=== PATIENT | female | born 1940 | race Caucasian/White ===

== ENCOUNTER 2018-11-30 13:29 | Inpatient (IN) ==
[2018-11-30] MEDS ORDERED: IPRATROPIUM/ALBUTEROL 3 ML AMPUL.NEB NEB ONE ×3 (13:31→21:21)
[2018-11-30] MEDS ORDERED: methylPREDNISolone SOD SUCC 125 MG/2 ML VIAL IV ONE (13:31)
--- NOTE | 2018-11-30 13:51 | Emergency Department Note ---
SOB HPI - General Chief Complaint: Shortness of Breath/Dyspnea Stated Complaint: shortness of breath Time Seen by Provider: 11/30/18 13:33 Source: EMS Mode of arrival: EMS - History of Present Illness She was recently admitted on 11/17/18 exacerbation of COPD. ALSO had some CHF. She was seen again on 11/29/18 and given several treatments of DuoNeb and and Solu-Medrol. Her CK MB was elevated at the time of 6.6 however repeat troponin after 6 hours revealed no increase of the MB fraction. Her ABGs at that time showed a pH of 7.47 CO2 of 39 and O2 of 65 with saturating at 94% on 3 L of O2 is on chronic O2 at home Dr. Newby reviewed the repeat cardiac enzymes which were negative and patient was breathing well at the time. However patient states during the night, last night, she started having some wheezing again she called [facility] [facility] and when she arrived she was on CPAP and was given an albuterol treatment.Her temperature is 97.4 the pulse is 92 the respiratory rate is 30 blood pressure 172/31 pulse ox with the BiPAP is 89% . We have continue the CPAP and have put her on a DuoNeb along with Solu-Medrol. Patient is denying any chest pain her BNP previously was 1049 the d-dimer less than 0.27. Patient having severe wheezing and acute respiratory distress at this time. - Related Data Home Medications Medication Instructions Recorded Confirmed albuterol sulfate HFA 90 2 puff INHALATION Q6HP PRN g 08/16/17 11/30/18 mcg/actuation aerosol inhaler ranitidine 150 mg capsule 150 mg PO QHS 08/16/17 11/30/18 quetiapine 25 mg tablet 25 mg PO QHS tab 10/18/18 11/30/18 Prednisolone Acetate/Pf 5 ml OP QID 11/18/18 11/30/18 [Prednisolone Acet 1% Eye Drop] Warfarin [Coumadin] 5 mg PO MOTUWETHFRSA@1400 11/18/18 11/30/18 Wheelchair 1 each MC CONT 11/18/18 11/29/18 Carboxymethylcellulos/Glycerin 1 drp OU Q4 11/30/18 11/30/18 [Refresh Optive Eye Drops] Carboxymethylcellulos/Glycerin 1 drp OU HS 11/30/18 11/30/18 [Refresh Optive Gel Eye Drops] LORazepam [Ativan] 1 mg PO TID 11/30/18 11/30/18 Pramipexole [Mirapex] 0.125 mg PO HS 11/30/18 11/30/18 Sodium Chloride 5% Opth Drops 1 gtt OU Q4 11/30/18 11/30/18 [Dunia-128] amantadine HCl 100 mg capsule 100 mg PO DAILY 11/30/18 11/30/18 Previous Rx's Medication Instructions Recorded atorvastatin 10 mg tablet 10 mg PO QDAY #30 tab 09/20/18 carvedilol 3.125 mg tablet 3.125 mg PO QDAY #30 tab 09/20/18 misoprostol 200 mcg tablet 200 mcg PO QDAY #90 tab 10/07/18 bupropion HCl 75 mg tablet 75 mg PO QDAY #30 tab 10/31/18 furosemide 20 mg tablet 30 mg PO QDAY #45 tab 11/01/18 potassium chloride ER 20 mEq 20 meq PO QDAY #60 tab 11/01/18 tablet,extended release ipratropium-albuterol 0.5 mg-3 2 ml INHALATION QID PRN #360 ml 11/11/18 mg(2.5 mg base)/3 mL nebulization soln budesonide 0.5 mg/2 mL suspension 0.5 mg INHALATION BID #120 ml 11/29/18 for nebulization Allergies Allergy/AdvReac Type Severity Reaction Status Date / Time No Known Drug Allergies Allergy Verified 11/29/18 15:38 Review of Systems Constitutional: Denies: fever, chills Eyes: Denies: eye pain ENT ED: Denies: ear pain Cardiovascular: Denies: chest pain, palpitations Respiratory: Reports: shortness of breath Gastrointestinal: Denies: abdominal pain, nausea, vomiting Past Medical History - Past Medical History PMFSH Narrative: All Active Problems (Last Reviewed 11/29/18 @ 15:35 by Shane Quiles MD) Left hip pain (Acute) Laceration of forehead without complication (Acute) Acute exacerbation of chronic obstructive airways disease (Acute) Acute respiratory failure with hypoxia and hypercarbia (Acute) Carotid stenosis, bilateral (Chronic) Ischemic changes on computed tomography of head (Chronic) COPD (chronic obstructive pulmonary disease) with chronic bronchitis (Chronic) COPD exacerbation (Acute) Hypoxia (Chronic) Hypertension (Chronic) Restless leg syndrome (Chronic) Cough (Chronic) Joint stiffness (Chronic) Joint swelling (Chronic) Joint pain (Chronic) Rectal prolapse (Chronic) Anxiety (Chronic) Confusion (Chronic) Fall (Chronic) Pneumonia (Chronic) Breast cancer (Chronic) Chronic constipation (Chronic) Chronic lumbar pain (Chronic) History of mammogram (Chronic) History of Papanicolaou smear of cervix (Chronic) Chronic anxiety (Chronic) Chronic a-fib (Chronic) COPD (chronic obstructive pulmonary disease) (Chronic) Bronchitis (Chronic) Encounter for long-term (current) use of medications (Chronic) Anemia of chronic disease (Chronic) Dyspnea on exertion (Chronic) 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) Lower gastrointestinal hemorrhage (Chronic) Internal hemorrhoids (Chronic) Acute decompensated heart failure (Chronic) Nosocomial pneumonia (Chronic) Shortness of Breath (Chronic) Postoperative bleeding from incision (Chronic) Past Surgical History (Last Reviewed 11/29/18 @ 15:35 by Shane Quiles MD) H/O oophorectomy (Acute) History of carpal tunnel release (Chronic) History of cholecystectomy (Chronic) History of knee surgery (Chronic) History of mastectomy (Chronic) History of surgery (Chronic 03/26/16) History of surgery (Chronic) Family History (Last Reviewed 11/29/18 @ 15:35 by Shane Quiles MD) Father Prostate cancer Medical history: Reports: COPD, hypertension Surgical history ED: Reports: cholecystectomy, hysterectomy - Social History smoking status: Former smoker Alcohol use: Reports: None Drug use: Reports: none Physical Exam Limitations: no limitations General appearance: alert Head: atraumatic, normocephalic Eye: Present: normal appearance, PERRL ENT: normal exam, normal oropharynx Neck: Present: normal inspection, full ROM, trachea midline Chest: Present: normal inspection, symmetric chest wall rise. Absent: tenderness Respiratory: Present: normal lung sounds bilaterally. Absent: respiratory distress, rales/crackles, wheezes Cardiovascular: Present: regular rate, normal rhythm. Absent: bradycardia, tachycardia Abdominal: Present: soft. Absent: distention, tenderness, guarding, rebound Extremities: Present: normal inspection, full ROM. Absent: tenderness Back: Present: normal inspection, full ROM. Absent: tenderness Neurological: Present: alert, oriented X3, CN II-XII intact. Absent: motor sensory deficit Psychiatric: Present: normal affect, normal mood Course Vital Signs Temperature 97.4 F 11/30/18 13:29 Pulse Rate 92 H 11/30/18 13:29 Respiratory Rate 30 H 11/30/18 13:29 Blood Pressure 172/31 11/30/18 13:29 Pulse Oximetry (%) 89 L 11/30/18 13:29 Temperature 97.0 F 12/01/18 02:01 Pulse Rate 67 12/01/18 06:01 Respiratory Rate 20 12/01/18 06:01 Blood Pressure 140/93 12/01/18 06:01 Pulse Oximetry (%) 95 12/01/18 06:01 Shortness of Breath/Dyspnea - MDM Narrative Medical decision making narrative: Patient put on CPAP and responded appropriately and much improved talking freely we did try to take her off CPAP but her sats dropped immediately down to the mid 80sThe WBC is 12,100 the hemoglobin is 12.9 hematocrit 40.2 her INR is 1.7 the d-dimer 0.44 lactic acid is 1.7 sodium is 146 the potassium 4.0 CO2 is 30 and BUN is 30 creatinine 0.9 urine test shows [address] Garcia contacted patient to be admitted - Lab Data Result diagrams: 12/01/18 03:50 12/01/18 03:50 Lab Results 11/30/18 11/30/18 11/30/18 Range/Units 14:50 14:50 14:50 WBC TNP RBC TNP Hgb TNP Hct TNP MCV TNP MCH TNP MCHC TNP RDW TNP Plt Count TNP MPV TNP Gran % (38.0-78.0) % Lymph % (Auto) (15.5-49.0) % [place] % (Auto) (1.0-12.0) % Eos % (Auto) (0.0-7.0) % Baso % (Auto) (0.0-2.0) % Gran # (1.8-8.0) K/mcL Lymph # (Auto) (1.5-4.8) K/mcL [place] # (Auto) (0.1-0.9) K/mcL Eos # (Auto) (0.0-0.7) K/mcL Baso # (Auto) (0.0-0.3) K/mcL PT TNP INR TNP D-Dimer TNP VBG Lactic Acid 1.7 (0.5-2.0) mmol/L Magnesium (1.6-2.5) mg/dL Total Creatine Kinase (24-170) IU/L CK-MB (CK-2) (0-2.9) ng/ml Troponin T (0-0.03) ng/ml Procalcitonin (<0.10) ng/mL Urine Color Urine Appearance Urine pH (5.0-9.0) Ur Specific [place] (1.003-1.030) Urine Protein (NEG) mg/dL Urine Glucose (UA) (NEG) mg/dL Urine Ketones (NEG) mg/dL Urine Occult Blood (<5) alex/mcL Urine Nitrate (NEG) Urine Bilirubin (NEG) mg/dL Urine Urobilinogen (NEG) mg/dL Ur Leukocyte Esterase (NEG) /uL Urine RBC (0-1) /hpf Urine WBC (0-4) /hpf Ur Squamous Epith Cells (0-4) /hpf Ur Transition Epith Cell (0-2) /hpf Urine Bacteria (0) /hpf Urine Mucus (0) /hpf Ur Culture Indicated? 11/30/18 11/30/18 11/30/18 Range/Units 14:50 14:50 14:50 WBC RBC Hgb Hct MCV MCH MCHC RDW Plt Count MPV Gran % (38.0-78.0) % Lymph % (Auto) (15.5-49.0) % [place] % (Auto) (1.0-12.0) % Eos % (Auto) (0.0-7.0) % Baso % (Auto) (0.0-2.0) % Gran # (1.8-8.0) K/mcL Lymph # (Auto) (1.5-4.8) K/mcL [place] # (Auto) (0.1-0.9) K/mcL Eos # (Auto) (0.0-0.7) K/mcL Baso # (Auto) (0.0-0.3) K/mcL PT INR D-Dimer VBG Lactic Acid (0.5-2.0) mmol/L Magnesium 2.0 (1.6-2.5) mg/dL Total Creatine Kinase 211 H (24-170) IU/L CK-MB (CK-2) 11.5 H (0-2.9) ng/ml Troponin T < 0.01 (0-0.03) ng/ml Procalcitonin < 0.05 (<0.10) ng/mL Urine Color Urine Appearance Urine pH (5.0-9.0) Ur Specific [place] (1.003-1.030) Urine Protein (NEG) mg/dL Urine Glucose (UA) (NEG) mg/dL Urine Ketones (NEG) mg/dL Urine Occult Blood (<5) alex/mcL Urine Nitrate (NEG) Urine Bilirubin (NEG) mg/dL Urine Urobilinogen (NEG) mg/dL Ur Leukocyte Esterase (NEG) /uL Urine RBC (0-1) /hpf Urine WBC (0-4) /hpf Ur Squamous Epith Cells (0-4) /hpf Ur Transition Epith Cell (0-2) /hpf Urine Bacteria (0) /hpf Urine Mucus (0) /hpf Ur Culture Indicated? 11/30/18 11/30/18 11/30/18 Range/Units 15:15 15:35 15:36 WBC 12.1 H RBC 4.31 Hgb 12.9 Hct 40.2 MCV 93.3 MCH 30.0 MCHC 32.2 RDW 15.0 H Plt Count 176 MPV 9.1 Gran % 96.5 H (38.0-78.0) % Lymph % (Auto) 1.9 L (15.5-49.0) % [place] % (Auto) 1.5 (1.0-12.0) % Eos % (Auto) 0.1 (0.0-7.0) % Baso % (Auto) 0 (0.0-2.0) % Gran # 11.7 H (1.8-8.0) K/mcL Lymph # (Auto) 0.2 L (1.5-4.8) K/mcL [place] # (Auto) 0.2 (0.1-0.9) K/mcL Eos # (Auto) 0 (0.0-0.7) K/mcL Baso # (Auto) 0 (0.0-0.3) K/mcL PT 19.7 H INR 1.7 H D-Dimer 0.44 H VBG Lactic Acid (0.5-2.0) mmol/L Magnesium (1.6-2.5) mg/dL Total Creatine Kinase (24-170) IU/L CK-MB (CK-2) (0-2.9) ng/ml Troponin T (0-0.03) ng/ml Procalcitonin (<0.10) ng/mL Urine Color Yellow Urine Appearance Clear Urine pH 6.0 (5.0-9.0) Ur Specific [place] 1.020 (1.003-1.030) Urine Protein Neg (NEG) mg/dL Urine Glucose (UA) Norm (NEG) mg/dL Urine Ketones Neg (NEG) mg/dL Urine Occult Blood Trace A (<5) alex/mcL Urine Nitrate Neg (NEG) Urine Bilirubin Neg (NEG) mg/dL Urine Urobilinogen Norm (NEG) mg/dL Ur Leukocyte Esterase Neg (NEG) /uL Urine RBC 0 (0-1) /hpf Urine WBC 1 (0-4) /hpf Ur Squamous Epith Cells 4 (0-4) /hpf Ur Transition Epith Cell < 1 (0-2) /hpf Urine Bacteria 0 (0) /hpf Urine Mucus Few (0) /hpf Ur Culture Indicated? No Disposition Pt seen by PLACING JUDGE/PA only: No Clinical Impression: COPD exacerbation Disposition: Xfer As Inpt ([facility]) Condition: Serious
--- NOTE | 2018-11-30 14:19 | XRay Report ---
CLINICAL INFORMATION: sob COMPARISON: 11/29/2018 FINDINGS: Moderate cardiomegaly show slight increase. Mediastinum and pulmonary vessels are normal. Minor atelectasis in the right base. There are no definite infiltrates or effusions. IMPRESSION: Moderate cardiomegaly - no acute disease Interpreted and Authenticated by: Jacobo Brumfield 11/30/18
[2018-11-30] MEDS ORDERED: LORazepam 2 MG/ML VIAL IV ONE ×3 (15:03→18:21)
[2018-11-30 15:45] LABS: Creatine Kinase 211 IU/L (24-170); Creatine Kinase MB 11.5 ng/ml (0-2.9)
[2018-11-30 16:03] LABS: Appearance,Urine CLEAR; Bacteria,Urine 0 /hpf (0); Bilirubin,Urine NEG (NEG); Color,Urine YELLOW; Glucose,Urine (UA) NORM (NEG); Leukocyte Esterase,Urine NEG /uL (NEG); Mucus,Urine FEW /hpf (0); Protein,Urine NEG (NEG); Urine Blood TRACE ery/mcL (<5); Urine RBC 0 /hpf (0-1); Urine Squamous Epithelial Cell 4 /hpf (0-4); Urine Transitional Epi Cells < 1 /hpf (0-2); Urine WBC 1 /hpf (0-4); Urobilinogen,Urine NORM (NEG)
[2018-11-30 17:15] LABS: Basophils # (Auto) 0 K/mcL (0.0-0.3); Basophils % (Auto) 0 % (0.0-2.0); Eosinophils # (Auto) 0 K/mcL (0.0-0.7); Eosinophils % (Auto) 0.1 % (0.0-7.0); Granulocytes % (Auto) 96.5 % (38.0-78.0); Lymphocytes # (Auto) 0.2 K/mcL (1.5-4.8); Lymphocytes % (Auto) 1.9 % (15.5-49.0); Mean Cell Volume 93.3 fL (80.0-100.0); Mean Corpuscular HGB Conc 32.2 g/dL (31.0-36.0); Monocytes # (Auto) 0.2 K/mcL (0.1-0.9); Monocytes % (Auto) 1.5 % (1.0-12.0); Platelet Count 176 K/mcL (140-440); RBC 4.31 M/mcL (4.00-5.20)
--- NOTE | 2018-11-30 18:35 | Internal Med History&Physical ---
Medical - H&P: [facility] Patient information: Note initiated : 11/30/18 at 6:32 pm Service Date, if different from initiated Date: [] Patient: Nirali Carbajal a 78 y/o F admitted on for SOB . Chief Complaint: [] History of present illness: Ms. Carbajal is a 78 year old F with severe end-stage COPD presents to the hospital today for evaluation of shortness of breath. She was here in the emergency room yesterday and was also seen by PCP I believe yesterday. She was admitted to this hospital less than 2 weeks ago for COPD exacerbation. The patient was in the emergency room yesterday for shortness of breath and COPD exacerbation, it seems she was better and was also evaluated by PCP yesterday. The patient's story is a bit unclear as she was in BiPAP and significantly short of breath. It seems her shortness of breath got worse today and EMS was called. They needed to resort to initiation of BiPAP on her way, and multiple rounds of DuoNeb's. The patient was hypoxic saturating 89% at the time of presentation to the ED. Visibly short of breath and respiratory distress. Patient was afebrile, heart rate 92 respirations 30 blood pressure 172 x 31 and saturating 89% on BiPAP. X-ray chest shows negative for any acute infiltrate. ABG shows pH of 7.23, PCO2 61 PO2 752, 100% FiO2 on BiPAP setting over 08/19 The patient had mild leukocytosis hemoglobin 12.9, WBC 11.1, platelets 176 lactic acid 1.7 INR 1.7 d-dimer 0.44 CK-MB is 11.5 magnesium 2.0 sodium 145 potassium 3.9 chloride 101 bicarb 30 creatinine 0.9, the chemistries were done yesterday in the ER. UA is clear. Given the patient's severe respiratory distress and exacerbation patient is being admitted to the hospital for further management to the ICU status. In the past the patient has noted that she would like to be DNR however today it seems she agreed to intubation and CPR ROS unobtainable: due to mental status, other (on bipap, resp distres) Medical - H&P: PMH Medical history: Medical History (Last Reviewed 11/29/18 @ 15:35 by Shane Quiles MD) Hypoxia (Chronic) Hypertension (Chronic) Restless leg syndrome (Chronic) Cough (Chronic) Joint stiffness (Chronic) Joint swelling (Chronic) Joint pain (Chronic) Rectal prolapse (Chronic) Anxiety (Chronic) Confusion (Chronic) Fall (Chronic) Pneumonia (Chronic) Breast cancer (Chronic) Chronic constipation (Chronic) Chronic lumbar pain (Chronic) History of mammogram (Chronic) History of Papanicolaou smear of cervix (Chronic) Chronic anxiety (Chronic) Chronic a-fib (Chronic) COPD (chronic obstructive pulmonary disease) (Chronic) Encounter for long-term (current) use of medications (Chronic) Anemia of chronic disease (Chronic) Dyspnea on exertion (Chronic) 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) Lower gastrointestinal hemorrhage (Chronic) Internal hemorrhoids (Chronic) Acute decompensated heart failure (Chronic) Nosocomial pneumonia (Chronic) Shortness of Breath (Chronic) History of hysterectomy (Chronic) Surgical history: Past Surgical History (Last Reviewed 11/29/18 @ 15:35 by Shane Quiles MD) H/O oophorectomy (Acute) History of carpal tunnel release (Chronic) History of cholecystectomy (Chronic) History of knee surgery (Chronic) History of mastectomy (Chronic) History of surgery (Chronic 03/26/16) History of surgery (Chronic) Pertinent family history: Family History (Last Reviewed 11/29/18 @ 15:35 by Shane Quiles MD) Father Prostate cancer Medical - H&P: Meds Home Medications Medication Instructions Recorded Confirmed Type albuterol sulfate HFA 90 2 puff INHALATION Q6HP PRN g 08/16/17 11/29/18 History mcg/actuation aerosol inhaler ranitidine 150 mg capsule 150 mg PO QHS 08/16/17 11/29/18 History amantadine HCl 100 mg capsule 100 mg PO BID #60 cap 08/26/18 11/29/18 Rx atorvastatin 10 mg tablet 10 mg PO QDAY #30 tab 09/20/18 11/29/18 Rx carvedilol 3.125 mg tablet 3.125 mg PO QDAY #30 tab 09/20/18 11/29/18 Rx misoprostol 200 mcg tablet 200 mcg PO QDAY #90 tab 10/07/18 11/29/18 Rx quetiapine 25 mg tablet 25 mg PO QHS tab 10/18/18 11/29/18 History bupropion HCl 75 mg tablet 75 mg PO QDAY #30 tab 10/31/18 11/29/18 Rx furosemide 20 mg tablet 30 mg PO QDAY #45 tab 11/01/18 11/29/18 Rx potassium chloride ER 20 mEq 20 meq PO QDAY #60 tab 11/01/18 11/29/18 Rx tablet,extended release ipratropium-albuterol 0.5 mg-3 2 ml INHALATION QID PRN #360 ml 11/11/18 11/29/18 Rx mg(2.5 mg base)/3 mL nebulization soln Doxycycline Monohydrate [Mondoxyne 50 mg PO DAILY 11/18/18 11/29/18 History Nl] Prednisolone Acetate/Pf 5 ml OP QID 11/18/18 11/29/18 History [Prednisolone Acet 1% Eye Drop] Warfarin [Coumadin] 2.5 mg PO BLACKMON@1400 11/18/18 11/29/18 History Warfarin [Coumadin] 5 mg PO MOTUWETHFRSA@1400 11/18/18 11/29/18 History Wheelchair 1 each MC CONT 11/18/18 11/29/18 History Azithromycin [Zithromax] 250 mg PO DAILY #2 tab 11/19/18 11/29/18 Rx predniSONE [Prednisone] 40 mg PO QAC #8 tab 11/19/18 11/29/18 Rx pramipexole 0.25 mg tablet 0.375 mg PO HS #60 tab 11/28/18 11/29/18 Rx budesonide 0.5 mg/2 mL suspension 0.5 mg INHALATION BID #120 ml 11/29/18 11/29/18 Rx for nebulization lorazepam 1 mg tablet 1 mg PO BID-TID PRN #90 tab 11/29/18 11/29/18 Rx Allergies Allergy/AdvReac Type Severity Reaction Status Date / Time No Known Drug Allergies Allergy Verified 11/29/18 15:38 Medical - H&P: Exam - Constitutional Vitals: Temp Pulse Resp BP Pulse Ox 97.4 F 88 25 H 174/147 98 11/30/18 13:29 11/30/18 16:47 11/30/18 17:02 11/30/18 17:02 11/30/18 16:47 Exam: GENERAL: The patient is a well-developed, well-nourished in severe respiratory distress on bipap aoox2. VITAL SIGNS: Reviewed and as noted elsewhere. HEENT: Head is normocephalic and atraumatic. Extraocular muscles are intact. Pupils are equal, round, and reactive to light. Nares appeared normal. Mouth appears any without lesions. Mucous membranes are dry NECK: Normal to inspection, Supple, No lymphadenopathy or thyromegaly. LUNGS: Air entry equal on both sides,decreased on both sides, [place] exp wheezing noted, pt speaking 2 words at a time on bipap, ussing accesory muscles of respiration. HEART: Regular rate and rhythm irregular , S1 and S2 heard, no Gallop, S3 or Rub Noted, No Gross murmur heard. ABDOMEN: Soft, nontender, and nondistended. Positive bowel sounds. No hepatosplenomegaly was noted. EXTREMITIES: No cyanosis, clubbing, rash, lesions or edema. NEUROLOGIC: Cranial nerves II through XII are grossly intact. Motor and Sensory System Grossly Intact PSYCHIATRIC: appears anxious SKIN: No ulceration or wounds noted, No jaundice, No rash noted. Medical - H&P: Reslt - Labs CBC & Chem 7: 11/30/18 15:35 Labs: Short CBC 11/30/18 11/30/18 Range/Units 14:50 15:35 WBC TNP 12.1 H Hgb TNP 12.9 Hct TNP 40.2 Plt Count TNP 176 Cardiac Enzymes 11/30/18 11/30/18 Range/Units 14:50 14:50 Total Creatine Kinase 211 H (24-170) IU/L CK-MB (CK-2) 11.5 H (0-2.9) ng/ml Troponin T < 0.01 (0-0.03) ng/ml Urine 11/30/18 Range/Units 15:15 Urine Color Yellow Urine Appearance Clear Urine pH 6.0 (5.0-9.0) Ur Specific [place] 1.020 (1.003-1.030) Urine Protein Neg (NEG) mg/dL Urine Glucose (UA) Norm (NEG) mg/dL Medical - H&P: A/P - Narrative A/P Narrative: A/P Acute hypoxic/Hypercapenic resp failure Acute copd exacerbation acute on chr respiratory failure Atrial fibrillation chr anticoagulation HTN H/o CHF Restless leg syndrome Plan Admit to PCU status continue on bipap, IV mag sulphate, duonebs and prn albuterol, IV steroids and zithromax for now I discharged this patient during a previous admission, and she was able able to ambulate quite well up and down the hallway without any issues. Her son had shown up the next day noting that the patient's living condition was not right and there were fumes from a septic that were causing her respiratory situation to be worse. The patient notes that that has been cleared but I am not sure if there is any other trigger in her home environment that is causing the patient's recent frequent exacerbation. I will reviewed the case with pulmonary, not sure if theophylline may be of any benefit at this stage Resume home medications, Patient has noted that she is okay with intubation at least at this visit, if fails BiPAP will intubate. DVT prophylaxis heparin subcu, INR is subtherapeutic at this time Full code as per patient, [was DNR in the past] Social History - Social History other: Daughter/Son/Granddaughter-Very Supportive - Exercise physical activity: other frequency: 3-4 times per week - Tobacco smoking status: Former smoker - Quit Details quit date: 01/15/17 pack-years: 60 - Alcohol alcohol intake frequency: does not drink - Substance use substance use type: does not use - Safety seatbelt use: always
[2018-11-30] MEDS ORDERED: AZITHROMYCIN 500 MG in DEXTROSE 5% IN WATER 250 ML IV ONE (20:58)
[2018-11-30] MEDS ORDERED: MAGNESIUM SULFATE 2 GM/50 ML BAG IV ONE (20:58)
[2018-11-30] MEDS ORDERED: ACETAMINOPHEN 325 MG TABLET PO PRN (20:58)
[2018-11-30] MEDS ORDERED: NALOXONE HCL 0.4 MG/ML VIAL IV PRN (20:58)
[2018-11-30] MEDS ORDERED: HYDROmorphone 2 MG/ML VIAL IV PRN (20:58)
[2018-11-30] MEDS ORDERED: ALBUTEROL SULFATE 2.5 MG/3 ML NEBULIZER NEB PRN (20:58)
[2018-11-30] MEDS: IPRATROPIUM/ALBUTEROL 3 ML AMPUL.NEB NEB SCH ×2 (21:20→23:20)
[2018-11-30] MEDS: LORazepam 2 MG/ML VIAL IV PRN (22:03)
[2018-11-30] MEDS: HEPARIN 5,000 UNIT/ML VIAL SQ SCH (23:03)
[2018-11-30] MEDS: methylPREDNISolone SOD SUCC 125 MG/2 ML VIAL IV SCH (23:04)
[2018-11-30] MEDS: 0.9 % SODIUM CHLORIDE 10 ML SYRINGE IV SCH (23:04)
[2018-12-01] MEDS: LORazepam 2 MG/ML VIAL IV PRN ×6 (00:38→21:36)
[2018-12-01] MEDS: IPRATROPIUM/ALBUTEROL 3 ML AMPUL.NEB NEB SCH ×6 (02:49→23:21)
[2018-12-01] MEDS: 0.9 % SODIUM CHLORIDE 10 ML SYRINGE IV SCH ×3 (05:25→20:07)
[2018-12-01] MEDS: methylPREDNISolone SOD SUCC 125 MG/2 ML VIAL IV SCH ×3 (05:25→21:36)
[2018-12-01 07:04] LABS: Basophils # (Auto) 0 K/mcL (0.0-0.3); Basophils % (Auto) 0 % (0.0-2.0); Eosinophils # (Auto) 0 K/mcL (0.0-0.7); Eosinophils % (Auto) 0 % (0.0-7.0); Granulocytes % (Auto) 96.1 % (38.0-78.0); Lymphocytes # (Auto) 0.2 K/mcL (1.5-4.8); Lymphocytes % (Auto) 3.1 % (15.5-49.0); Mean Cell Volume 93.2 fL (80.0-100.0); Mean Corpuscular HGB Conc 32.3 g/dL (31.0-36.0); Monocytes # (Auto) 0.1 K/mcL (0.1-0.9); Monocytes % (Auto) 0.8 % (1.0-12.0); Platelet Count 164 K/mcL (140-440); RBC 4.19 M/mcL (4.00-5.20); Red Cell Distribution Width 14.9 % (11.5-14.5)
[2018-12-01 07:29] LABS: ALT/SGPT 60 U/l (0-40); Albumin/Globulin Ratio 1.3 (1.0-2.3); Alkaline Phosphatase 85 U/L (39-117); Bilirubin,Direct < 0.2 mg/dL (0.0-0.3); Blood Urea Nitrogen 30 mg/dl (8-23); Gamma Glutamyl Transpeptidase 25 U/L (5-36)
[2018-12-01] MEDS: HEPARIN 5,000 UNIT/ML VIAL SQ SCH ×2 (08:10→20:07)
[2018-12-01] MEDS: PANTOPRAZOLE 40 MG TABLET PO SCH (08:10)
[2018-12-01] MEDS: AZITHROMYCIN 250 MG in DEXTROSE 5% IN WATER 250 ML IV SCH (08:10)
[2018-12-01] MEDS ORDERED: WARFARIN 5 MG TABLET PO ONE (14:00)
--- NOTE | 2018-12-01 16:24 | Internal Med Progress Note ---
Medical - PN: Subj Patient information: Note initiated : 12/01/18 at 4:14 pm Service Date, if different from initiated Date: [] Patient: Nirali Carbajal 78 y/o F admitted on 11/30/18 for SOB . Chief Complaint: [] Interval history: Ms. Carbajal is a 78 year old F with severe end-stage COPD presents to the hospital today for evaluation of shortness of breath. She was here in the emergency room yesterday and was also seen by PCP I believe yesterday. She was admitted to this hospital less than 2 weeks ago for COPD exacerbation. The patient was in the emergency room yesterday for shortness of breath and COPD exacerbation, it seems she was better and was also evaluated by PCP yesterday. The patient's story is a bit unclear as she was in BiPAP and significantly short of breath. It seems her shortness of breath got worse today and EMS was called. They needed to resort to initiation of BiPAP on her way, and multiple rounds of DuoNeb's. The patient was hypoxic saturating 89% at the time of presentation to the ED. Visibly short of breath and respiratory distress. Patient was afebrile, heart rate 92 respirations 30 blood pressure 172 x 31 and saturating 89% on BiPAP. X-ray chest shows negative for any acute infiltrate. ABG shows pH of 7.23, PCO2 61 PO2 752, 100% FiO2 on BiPAP setting over 08/19 The patient had mild leukocytosis hemoglobin 12.9, WBC 11.1, platelets 176 lactic acid 1.7 INR 1.7 d-dimer 0.44 CK-MB is 11.5 magnesium 2.0 sodium 145 potassium 3.9 chloride 101 bicarb 30 creatinine 0.9, the chemistries were done yesterday in the ER. UA is clear. Given the patient's severe respiratory distress and exacerbation patient is being admitted to the hospital for further management to the ICU status. 12/01 Patient seen and examined, no acute overnight events, off BiPAP this morning doing much better, air entry is better. Labs stable. I reviewed with the daughter again that the patient likely has some kind of an exposure that she is living which is triggering her breathing issues. On further discussion it seems that the patient has exposure to high amounts of bleach that is irritating her respiratory passage. Regarding her recurrent bouts of COPD exacerbation. Viral respiratory panel was also positive for RSV B patient will benefit at this time from some rehab before she goes back to her place, naye educated to look for precipating factors. Pertinent ROS: Denies headache, dizziness Denies chest pain, palpitations cough and shortness of breath improving. Denies abdominal pain, nausea or vomiting. - Constitutional Vitals: Vital Signs Temp Pulse Resp BP Pulse Ox 96.8 F L 83 32 H 147/89 99 12/01/18 15:01 12/01/18 15:49 12/01/18 15:49 12/01/18 15:01 12/01/18 15:49 Period Temp Pulse Resp BP Sys/Morales Pulse Ox Last 24 Hr 96.1 F-98.1 F 60-125 17-34 114-175/75-147 89-100 Intake and Output 12/01/18 12/01/18 12/01/18 05:59 13:59 21:59 Intake Total 300 660 300 Output Total 600 650 200 Balance -300 10 100 Intake & Output: Intake & Output 12/01/18 12/01/18 12/01/18 05:59 13:59 21:59 Intake Total 300 660 300 Output Total 600 650 200 Balance -300 10 100 Intake: IV 300 250 Zithromax 250 mg In Dextrose 5% 250 250 in Water 250 ml @ 250 mls/hr IV Q24H [facility] Rx#:[id number] Oral 410 300 Output: Urine Catheter Amount 600 250 200 Void Amount 400 Other: Meal Breakfast Lunch Percent of Meal Consumed 25% 50% Feeding Ability Total Assistance Total Assistance Urine Appearance Clear Sediment Clear Hicks Clear Clear Clear Urine Color Light Caryn Light Caryn Light Caryn Hicks Light Caryn Light Caryn Light Caryn Urine Odor Normal Exam: Constitutional; Afebrile, cooperative, alert, not in distress. Eyes- No icterus, , No periorbital swelling Ears- Ext ear normal, hearing normal to conversation. Neck- Midline trachea, supple Respiratory system: Air Entry equal on both sides, expiratory wheeze, reduced air entry bilaterally, air entry improved however in comparison with yesterday CVS- Rate rhythm regular, S1,S2 heard, no gallop, no rub. 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 Tardive dyskinesa movements noted. Medical - PN: Obj Da - Labs CBC & Chem 7: 12/01/18 03:50 12/01/18 03:50 Labs: Abnormal Lab Results 12/01/18 12/01/18 12/01/18 03:50 03:50 03:50 WBC RDW 14.9 H Gran % 96.1 H Lymph % (Auto) 3.1 L [place] % (Auto) 0.8 L Gran # Lymph # (Auto) 0.2 L PT 18.0 H INR 1.5 H D-Dimer Sodium 146 H BUN 30 H Glucose 137 H Magnesium 2.7 H AST 38 H ALT 60 H Lactate Dehydrogenase 343 H Total Creatine Kinase CK-MB (CK-2) Urine Occult Blood 11/30/18 11/30/18 11/30/18 15:36 15:35 15:15 WBC 12.1 H RDW 15.0 H Gran % 96.5 H Lymph % (Auto) 1.9 L [place] % (Auto) Gran # 11.7 H Lymph # (Auto) 0.2 L PT 19.7 H INR 1.7 H D-Dimer 0.44 H Sodium BUN Glucose Magnesium AST ALT Lactate Dehydrogenase Total Creatine Kinase CK-MB (CK-2) Urine Occult Blood Trace A 11/30/18 14:50 WBC RDW Gran % Lymph % (Auto) [place] % (Auto) Gran # Lymph # (Auto) PT INR D-Dimer Sodium BUN Glucose Magnesium AST ALT Lactate Dehydrogenase Total Creatine Kinase 211 H CK-MB (CK-2) 11.5 H Urine Occult Blood Meds: Medications Acetaminophen (Tylenol) 650 mg PO Q4-6HP PRN PRN Reason: PAIN/FEVER > 101 Albuterol Sulfate (Ventolin) 2.5 mg NEB Q2HP PRN PRN Reason: Shortness Of Breath Albuterol/Ipratropium (Duoneb) 3 ml NEB Q4HRT [facility] Last Admin: 12/01/18 15:43 Dose: 3 ml Documented by: Heparin Sodium (Porcine) (Heparin) 5,000 unit SQ Q12 [facility] Last Admin: 12/01/18 08:10 Dose: 5,000 unit Documented by: Hydromorphone HCl (Dilaudid) 0.5 mg IV Q2HP PRN PRN Reason: PAIN LEVEL > 6 Azithromycin 250 mg/ Dextrose 250 mls @ 250 mls/hr IV Q24H [facility]; Protocol Stop: 12/04/18 09:59 Last Infusion: 12/01/18 10:21 Dose: Infused Documented by: Lorazepam (Ativan) 1 mg IV Q2HP PRN PRN Reason: ANXIETY/SEDATION Last Admin: 12/01/18 15:17 Dose: 1 mg Documented by: Methylprednisolone Sodium Succinate (Solu-Medrol) 62.5 mg IV Q8 [facility] Last Admin: 12/01/18 13:55 Dose: 62.5 mg Documented by: Naloxone HCl (Narcan) 0.1 mg IV Q2MIN PRN PRN Reason: Opiate Reversal Pantoprazole Sodium (Protonix) 40 mg PO QAMAC [facility] Last Admin: 12/01/18 08:10 Dose: 40 mg Documented by: Sodium Chloride (Saline Flush) 10 ml IV Q8 [facility] Last Admin: 12/01/18 13:55 Dose: 10 ml Documented by: Warfarin Sodium (Coumadin Per Pharmacy) 1 order PO UD [facility] Medical - PN: A/P - Time Spent With Patient Total time spent is greater than 50% in coordination of care (as documented) at patient's floor/unit and/or counseling patient: - Narrative A/P Narrative: A/P Acute hypoxic/Hypercapenic resp failure Acute copd exacerbation acute on chr respiratory failure Atrial fibrillation chr anticoagulation HTN H/o CHF Restless leg syndrome Plan continue to monitor closely, tenous resp status continue on bipap, wean off as tolerated continue, duonebs and prn albuterol, IV steroids and zithromax for now Daughter educated regarding precipating factors. Resume home medications, Patient has noted that she is okay with intubation at least at this visit, if fails BiPAP will intubate. DVT prophylaxis heparin subcu, INR is subtherapeutic at this time limited code, ok to intubate, but no cpr ] Medical - PN: Qual - VTE Deep Vein Thrombosis/Pulmonary Embolism Present on Admission: No
[2018-12-02] MEDS: LORazepam 2 MG/ML VIAL IV PRN ×2 (01:10→04:04)
[2018-12-02] MEDS: IPRATROPIUM/ALBUTEROL 3 ML AMPUL.NEB NEB SCH ×6 (03:09→23:01)
[2018-12-02] MEDS: 0.9 % SODIUM CHLORIDE 10 ML SYRINGE IV SCH ×4 (05:54→20:25)
[2018-12-02] MEDS: methylPREDNISolone SOD SUCC 125 MG/2 ML VIAL IV SCH ×3 (05:54→22:23)
[2018-12-02] MEDS ORDERED: 0.45 % SODIUM CHLORIDE 1,000 ML IV SCH (07:00)
[2018-12-02 07:03] LABS: Basophils # (Auto) 0 K/mcL (0.0-0.3); Basophils % (Auto) 0 % (0.0-2.0); Eosinophils # (Auto) 0 K/mcL (0.0-0.7); Eosinophils % (Auto) 0 % (0.0-7.0); Granulocytes % (Auto) 95.9 % (38.0-78.0); Lymphocytes # (Auto) 0.3 K/mcL (1.5-4.8); Mean Cell Volume 93.7 fL (80.0-100.0); Mean Corpuscular HGB Conc 32.1 g/dL (31.0-36.0); Monocytes # (Auto) 0.3 K/mcL (0.1-0.9); Monocytes % (Auto) 2.1 % (1.0-12.0); Platelet Count 155 K/mcL (140-440); RBC 4.13 M/mcL (4.00-5.20); Red Cell Distribution Width 15.1 % (11.5-14.5)
[2018-12-02 07:30] LABS: ALT/SGPT 74 U/l (0-40); Albumin 3.9 gm/dL (3.2-5.2); Albumin/Globulin Ratio 1.3 (1.0-2.3); Alkaline Phosphatase 87 U/L (39-117); Bilirubin,Direct < 0.2 mg/dL (0.0-0.3); Blood Urea Nitrogen 33 mg/dl (8-23); Gamma Glutamyl Transpeptidase 113 U/L (5-36); Uric Acid 6.5 mg/dL (2.5-8.0)
--- NOTE | 2018-12-02 07:39 | Internal Med Progress Note ---
Medical - PN: Subj Patient information: Note initiated : 12/02/18 at 7:37 am Service Date, if different from initiated Date: [] Patient: Nirali Carbajal 78 y/o F admitted on 11/30/18 for SOB . Chief Complaint: [] Interval history: Ms. Carbajal is a 78 year old F with severe end-stage COPD presents to the hospital today for evaluation of shortness of breath. She was here in the emergency room yesterday and was also seen by PCP I believe yesterday. She was admitted to this hospital less than 2 weeks ago for COPD exacerbation. The patient was in the emergency room yesterday for shortness of breath and COPD exacerbation, it seems she was better and was also evaluated by PCP yesterday. The patient's story is a bit unclear as she was in BiPAP and significantly short of breath. It seems her shortness of breath got worse today and EMS was called. They needed to resort to initiation of BiPAP on her way, and multiple rounds of DuoNeb's. The patient was hypoxic saturating 89% at the time of presentation to the ED. Visibly short of breath and respiratory distress. Patient was afebrile, heart rate 92 respirations 30 blood pressure 172 x 31 and saturating 89% on BiPAP. X-ray chest shows negative for any acute infiltrate. ABG shows pH of 7.23, PCO2 61 PO2 752, 100% FiO2 on BiPAP setting over 08/19 The patient had mild leukocytosis hemoglobin 12.9, WBC 11.1, platelets 176 lactic acid 1.7 INR 1.7 d-dimer 0.44 CK-MB is 11.5 magnesium 2.0 sodium 145 potassium 3.9 chloride 101 bicarb 30 creatinine 0.9, the chemistries were done yesterday in the ER. UA is clear. Given the patient's severe respiratory distress and exacerbation patient is being admitted to the hospital for further management to the ICU status. 12/01 Patient seen and examined, no acute overnight events, off BiPAP this morning doing much better, air entry is better. Labs stable. I reviewed with the daughter again that the patient likely has some kind of an exposure that she is living which is triggering her breathing issues. On further discussion it seems that the patient has exposure to high amounts of bleach that is irritating her respiratory passage. Regarding her recurrent bouts of COPD exacerbation. Viral respiratory panel was also positive for RSV B patient will benefit at this time from some rehab before she goes back to her place, daughter educated to look for precipating factors. 12/02 Patient seen and examined, on NC now, but still short of breath, feels a bit better than before, concerns for aspiration? Patient still wheezing. Pertinent ROS: Denies headache, dizziness Denies chest pain, palpitations present, cough and shortness of breath Denies abdominal pain, nausea or vomiting. - Constitutional Vitals: Vital Signs Temp Pulse Resp BP Pulse Ox 97.2 F 85 32 H 151/94 97 12/02/18 07:03 12/02/18 07:08 12/02/18 07:08 12/02/18 07:03 12/02/18 07:08 Period Temp Pulse Resp BP Sys/Morales Pulse Ox Last 24 Hr 96.1 F-98.6 F 60-119 18-34 114-176/0-163 91-100 Intake and Output 12/01/18 12/02/18 12/02/18 21:59 05:59 13:59 Intake Total 1005 0 Output Total 300 375 200 Balance 705 -375 -200 Weight 177 lb 14.4 oz Intake & Output: Intake & Output 12/01/18 12/02/18 12/02/18 21:59 05:59 13:59 Intake Total 1005 0 Output Total 300 375 200 Balance 705 -375 -200 Weight 177 lb 14.4 oz Intake: Nourishment/Supplement quantity 440 (ml) Oral 565 0 Output: Urine Catheter Amount 300 375 200 Other: Meal Dinner Percent of Meal Consumed 100% Feeding Ability Assist with Tray Set Up Nourishment/Supplement name ensure Urine Appearance Clear Sediment Clear Hicks Clear Clear Urine Color Dark Caryn Dark Caryn Dark Yellow Hicks Dark Yellow Dark Caryn Urine Odor Normal Normal Exam: Constitutional; Afebrile, cooperative, alert, not in distress. Respiratory system: Air Entry equal on both sides, [place] exp wheeze present CVS- Rate rhythm irregular, S1,S2 heard, no gallop, no rub. 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 Tarditive dyskiensia present Medical - PN: Obj Da - Labs CBC & Chem 7: 12/02/18 04:00 12/02/18 04:00 Labs: Abnormal Lab Results 12/02/18 12/02/18 12/02/18 04:00 04:00 04:00 WBC 12.4 H RDW 15.1 H Gran % 95.9 H Lymph % (Auto) 2.0 L [place] % (Auto) Gran # 11.9 H Lymph # (Auto) 0.3 L PT 20.4 H INR 1.8 H D-Dimer Sodium BUN 33 H Glucose 140 H Magnesium 2.7 H GGT 113 H AST 58 H ALT 74 H Lactate Dehydrogenase 464 H Total Creatine Kinase CK-MB (CK-2) Urine Occult Blood 12/01/18 12/01/18 12/01/18 03:50 03:50 03:50 WBC RDW 14.9 H Gran % 96.1 H Lymph % (Auto) 3.1 L [place] % (Auto) 0.8 L Gran # Lymph # (Auto) 0.2 L PT 18.0 H INR 1.5 H D-Dimer Sodium 146 H BUN 30 H Glucose 137 H Magnesium 2.7 H GGT AST 38 H ALT 60 H Lactate Dehydrogenase 343 H Total Creatine Kinase CK-MB (CK-2) Urine Occult Blood 11/30/18 11/30/18 11/30/18 15:36 15:35 15:15 WBC 12.1 H RDW 15.0 H Gran % 96.5 H Lymph % (Auto) 1.9 L [place] % (Auto) Gran # 11.7 H Lymph # (Auto) 0.2 L PT 19.7 H INR 1.7 H D-Dimer 0.44 H Sodium BUN Glucose Magnesium GGT AST ALT Lactate Dehydrogenase Total Creatine Kinase CK-MB (CK-2) Urine Occult Blood Trace A 11/30/18 14:50 WBC RDW Gran % Lymph % (Auto) [place] % (Auto) Gran # Lymph # (Auto) PT INR D-Dimer Sodium BUN Glucose Magnesium GGT AST ALT Lactate Dehydrogenase Total Creatine Kinase 211 H CK-MB (CK-2) 11.5 H Urine Occult Blood Meds: Medications Acetaminophen (Tylenol) 650 mg PO Q4-6HP PRN PRN Reason: PAIN/FEVER > 101 Albuterol Sulfate (Ventolin) 2.5 mg NEB Q2HP PRN PRN Reason: Shortness Of Breath Albuterol/Ipratropium (Duoneb) 3 ml NEB Q4HRT [facility] Last Admin: 12/02/18 07:06 Dose: 3 ml Documented by: Amantadine HCl (Amantadine) 100 mg PO DAILY [facility] Atorvastatin Calcium (Lipitor) 10 mg PO QDAY [facility] Budesonide (Pulmicort) 0.5 mg NEB BID [facility] Bupropion HCl (Wellbutrin) 75 mg PO QDAY [facility] Famotidine (Pepcid) 150 mg PO QHS [facility] Furosemide (Lasix) 30 mg PO QDAY [facility] Heparin Sodium (Porcine) (Heparin) 5,000 unit SQ Q12 [facility] Last Admin: 12/01/18 20:07 Dose: 5,000 unit Documented by: Hydromorphone HCl (Dilaudid) 0.5 mg IV Q2HP PRN PRN Reason: PAIN LEVEL > 6 Last Admin: 12/01/18 20:26 Dose: 0.5 mg Documented by: Azithromycin 250 mg/ Dextrose 250 mls @ 250 mls/hr IV Q24H [facility]; Protocol Stop: 12/04/18 09:59 Last Infusion: 12/01/18 10:21 Dose: Infused Documented by: Sodium Chloride (Sodium Chloride 0.45%) 1,000 mls @ 75 mls/hr IV .[id number] [facility] Stop: 12/02/18 20:19 Lorazepam (Ativan) 1 mg IV Q2HP PRN PRN Reason: ANXIETY/SEDATION Last Admin: 12/02/18 04:04 Dose: 1 mg Documented by: Lorazepam (Ativan) 1 mg PO TIDP PRN PRN Reason: Anxiety Methylprednisolone Sodium Succinate (Solu-Medrol) 62.5 mg IV Q8 [facility] Last Admin: 12/02/18 05:54 Dose: 62.5 mg Documented by: Misoprostol (Cytotec) 200 mcg PO QAC [facility] Naloxone HCl (Narcan) 0.1 mg IV Q2MIN PRN PRN Reason: Opiate Reversal Non-Formulary Medication (Carboxymethylcellulos/Glycerin [Refresh Optive Eye Drops]) 1 drp OU Q4 [facility] Non-Formulary Medication (Carboxymethylcellulos/Glycerin [Refresh Optive Gel Eye Drops]) 1 drp OU HS [facility] Non-Formulary Medication (Prednisolone Acetate/Pf [Prednisolone Acet 1% Eye Drop]) 5 ml OP QID [facility] Pantoprazole Sodium (Protonix) 40 mg PO QAMAC [facility] Last Admin: 12/01/18 08:10 Dose: 40 mg Documented by: Potassium Chloride (Kdur) 20 meq PO QAMCC [facility] Pramipexole Dihydrochloride (Mirapex) 0.125 mg PO HS [facility] Quetiapine Fumarate (Seroquel) 25 mg PO QHS [facility] Sodium Chloride (Saline Flush) 10 ml IV Q8 [facility] Last Admin: 12/02/18 05:54 Dose: 10 ml Documented by: Sodium Chloride ([id number]) 1 gtt OU Q4 [facility] Warfarin Sodium (Coumadin Per Pharmacy) 1 order PO UD [facility] Medical - PN: A/P - Time Spent With Patient Total time spent is greater than 50% in coordination of care (as documented) at patient's floor/unit and/or counseling patient: - Narrative A/P Narrative: A/P Acute hypoxic/Hypercapenic resp failure Acute copd exacerbation acute on chr respiratory failure Atrial fibrillation chr anticoagulation HTN H/o CHF Restless leg syndrome Plan continue to monitor closely, continue on bipap, wean off as tolerated continue, duonebs and prn albuterol, IV steroids and zithromax for now ST for speech and diet consistency Resume home medications, Patient has noted that she is okay with intubation at least at this visit, if fa ils BiPAP will intubate. DVT prophylaxis heparin subcu, INR is subtherapeutic at this time limited code, ok to intubate, but no cpr ] Medical - PN: Qual - VTE Deep Vein Thrombosis/Pulmonary Embolism Present on Admission: No
[2018-12-02] MEDS: MISOPROSTOL 100 MCG TABLET PO SCH (08:09)
[2018-12-02] MEDS: POTASSIUM CHLORIDE 10 MEQ TABLET PO SCH (08:10)
[2018-12-02] MEDS: CARVEDILOL 3.125 MG TABLET PO SCH (08:10)
[2018-12-02] MEDS: PANTOPRAZOLE 40 MG TABLET PO SCH (08:10)
[2018-12-02] MEDS: SODIUM CHLORIDE 5% OPTH DROPS BOTTLE 15ML OU SCH ×6 (08:16→23:48)
[2018-12-02] MEDS: AZITHROMYCIN 250 MG in DEXTROSE 5% IN WATER 250 ML IV SCH (09:13)
[2018-12-02] MEDS: FUROSEMIDE 20 MG TABLET PO SCH (09:44)
[2018-12-02] MEDS: ATORVASTATIN 20 MG TABLET PO SCH (09:44)
[2018-12-02] MEDS: AMANTADINE HCL 100 MG CAPSULE PO SCH (09:44)
[2018-12-02] MEDS: HEPARIN 5,000 UNIT/ML VIAL SQ SCH ×2 (09:45→20:23)
[2018-12-02] MEDS: prednisoLONE 1% OPHTH DROPS 1ML BOTTLE OU SCH ×4 (09:46→20:22)
[2018-12-02] MEDS: buPROPion 75 MG TABLET PO SCH (09:46)
[2018-12-02] MEDS: CARBOXYMETHYLCELLULOSE SODIUM 1 EACH DROPER.GEL OU SCH ×6 (09:48→23:53)
[2018-12-02] MEDS: LORazepam 1 MG TABLET PO PRN ×2 (12:32→20:23)
[2018-12-02] MEDS: BUDESONIDE 0.5 MG/2 ML AMPUL.NEB NEB SCH ×2 (12:37→18:59)
[2018-12-02] MEDS ORDERED: WARFARIN 5 MG TABLET PO SCH (14:00)
[2018-12-02] MEDS: PRAMIPEXOLE 0.25 MG TABLET PO SCH (20:22)
[2018-12-02] MEDS: FAMOTIDINE 20 MG TABLET PO SCH (20:23)
[2018-12-02] MEDS: QUEtiapine 25 MG TABLET PO SCH (20:23)
[2018-12-03] MEDS: LORazepam 2 MG/ML VIAL IV PRN (01:25)
[2018-12-03] MEDS: IPRATROPIUM/ALBUTEROL 3 ML AMPUL.NEB NEB SCH ×6 (03:01→23:23)
[2018-12-03] MEDS: CARBOXYMETHYLCELLULOSE SODIUM 1 EACH DROPER.GEL OU SCH ×6 (04:33→21:33)
[2018-12-03] MEDS: SODIUM CHLORIDE 5% OPTH DROPS BOTTLE 15ML OU SCH ×5 (04:33→21:30)
[2018-12-03 05:23] LABS: Basophils # (Auto) 0 K/mcL (0.0-0.3); Basophils % (Auto) 0 % (0.0-2.0); Eosinophils # (Auto) 0 K/mcL (0.0-0.7); Eosinophils % (Auto) 0 % (0.0-7.0); Granulocytes % (Auto) 94.8 % (38.0-78.0); Lymphocytes # (Auto) 0.3 K/mcL (1.5-4.8); Lymphocytes % (Auto) 3.7 % (15.5-49.0); Mean Cell Volume 93.6 fL (80.0-100.0); Mean Corpuscular HGB Conc 32.1 g/dL (31.0-36.0); Monocytes # (Auto) 0.1 K/mcL (0.1-0.9); Monocytes % (Auto) 1.5 % (1.0-12.0); Platelet Count 155 K/mcL (140-440); RBC 4.07 M/mcL (4.00-5.20)
[2018-12-03] MEDS: 0.9 % SODIUM CHLORIDE 10 ML SYRINGE IV SCH ×3 (05:34→13:25)
[2018-12-03] MEDS: methylPREDNISolone SOD SUCC 125 MG/2 ML VIAL IV SCH ×3 (05:35→21:25)
[2018-12-03 05:37] LABS: ALT/SGPT 49 U/l (0-40); Albumin 3.6 gm/dL (3.2-5.2); Albumin/Globulin Ratio 1.3 (1.0-2.3); Alkaline Phosphatase 74 U/L (39-117); Bilirubin,Direct < 0.2 mg/dL (0.0-0.3); Blood Urea Nitrogen 30 mg/dl (8-23); Gamma Glutamyl Transpeptidase 83 U/L (5-36)
[2018-12-03] MEDS: BUDESONIDE 0.5 MG/2 ML AMPUL.NEB NEB SCH ×2 (07:02→19:52)
[2018-12-03] MEDS: MISOPROSTOL 100 MCG TABLET PO SCH (08:22)
[2018-12-03] MEDS: CARVEDILOL 3.125 MG TABLET PO SCH (08:22)
[2018-12-03] MEDS: POTASSIUM CHLORIDE 10 MEQ TABLET PO SCH (08:22)
[2018-12-03] MEDS: PANTOPRAZOLE 40 MG TABLET PO SCH (08:23)
[2018-12-03] MEDS: buPROPion 75 MG TABLET PO SCH (09:39)
[2018-12-03] MEDS: AMANTADINE HCL 100 MG CAPSULE PO SCH (09:39)
[2018-12-03] MEDS: ATORVASTATIN 20 MG TABLET PO SCH (09:39)
[2018-12-03] MEDS: FUROSEMIDE 20 MG TABLET PO SCH (09:39)
[2018-12-03] MEDS: prednisoLONE 1% OPHTH DROPS 1ML BOTTLE OU SCH ×3 (09:40→21:22)
[2018-12-03] MEDS: AZITHROMYCIN 250 MG in DEXTROSE 5% IN WATER 250 ML IV SCH (09:40)
--- NOTE | 2018-12-03 10:37 | Internal Med Progress Note ---
Medical - PN: Subj Patient information: Note initiated : 12/03/18 at 10:35 am Service Date, if different from initiated Date: [] Patient: Nirali Carbajal 78 y/o F admitted on 11/30/18 for SOB . Chief Complaint: [] Interval history: Ms. Carbajal is a 78 year old F with severe end-stage COPD presents to the hospital today for evaluation of shortness of breath. She was here in the emergency room yesterday and was also seen by PCP I believe yesterday. She was admitted to this hospital less than 2 weeks ago for COPD exacerbation. The patient was in the emergency room yesterday for shortness of breath and COPD exacerbation, it seems she was better and was also evaluated by PCP yesterday. The patient's story is a bit unclear as she was in BiPAP and significantly short of breath. It seems her shortness of breath got worse today and EMS was called. They needed to resort to initiation of BiPAP on her way, and multiple rounds of DuoNeb's. The patient was hypoxic saturating 89% at the time of presentation to the ED. Visibly short of breath and respiratory distress. Patient was afebrile, heart rate 92 respirations 30 blood pressure 172 x 31 and saturating 89% on BiPAP. X-ray chest shows negative for any acute infiltrate. ABG shows pH of 7.23, PCO2 61 PO2 752, 100% FiO2 on BiPAP setting over 08/19 The patient had mild leukocytosis hemoglobin 12.9, WBC 11.1, platelets 176 lactic acid 1.7 INR 1.7 d-dimer 0.44 CK-MB is 11.5 magnesium 2.0 sodium 145 potassium 3.9 chloride 101 bicarb 30 creatinine 0.9, the chemistries were done yesterday in the ER. UA is clear. Given the patient's severe respiratory distress and exacerbation patient is being admitted to the hospital for further management to the ICU status. 12/01 Patient seen and examined, no acute overnight events, off BiPAP this morning doing much better, air entry is better. Labs stable. I reviewed with the daughter again that the patient likely has some kind of an exposure that she is living which is triggering her breathing issues. On further discussion it seems that the patient has exposure to high amounts of bleach that is irritating her respiratory passage. Regarding her recurrent bouts of COPD exacerbation. Viral respiratory panel was also positive for RSV B patient will benefit at this time from some rehab before she goes back to her place, daughter educated to look for precipating factors. 12/02 Patient seen and examined, on NC now, but still short of breath, feels a bit better than before, concerns for aspiration? Patient still wheezing. 12/03 Patient seen and examined, high risk for aspiration placed n.p.o. except meds. Patient still on BiPAP, wheezing but feels better. No new concerns Pertinent ROS: Denies headache, dizziness Denies chest pain, palpitations Shortness of breath and cough improving Denies abdominal pain, nausea or vomiting. - Constitutional Vitals: Vital Signs Temp Pulse Resp BP Pulse Ox 97.7 F 82 23 H 137/95 93 12/03/18 06:46 12/03/18 09:02 12/03/18 09:02 12/03/18 09:02 12/03/18 09:02 Period Temp Pulse Resp BP Sys/Morales Pulse Ox Last 24 Hr 96.1 F-98.8 F 58-102 19-33 131-174/69-110 87-100 Intake and Output 12/02/18 12/03/18 12/03/18 21:59 05:59 13:59 Intake Total 1000 0 Output Total 895 559 250 Balance 105 -559 -250 Weight 178 lb 4 oz Intake & Output: Intake & Output 12/02/18 12/03/18 12/03/18 21:59 05:59 13:59 Intake Total 1000 0 Output Total 895 559 250 Balance 105 -559 -250 Weight 178 lb 4 oz Intake: IV 1000 Oral 0 Output: Urine Catheter Amount 895 559 250 Other: Urine Appearance Clear Clear Clear Hicks Hematuria Urine Color Light Caryn Dark Yellow [place] Hicks Light Caryn Dark Yellow Dark Yellow Urine Odor Normal Hicks Normal Normal Exam: Constitutional; Afebrile, cooperative, alert, not in distress. On BiPAP, Respiratory system: Air entry is equal on both sides, patient has decent air entry now compared to time of admission still has bilateral expiratory wheezes. Patient remains on BiPAP. CVS- Rate rhythm irregular, S1,S2 heard, no gallop, no rub. Abdomen- Soft nontender abdomen, no organomegaly, no tenderness, no guarding or rigidity, [employer]- AOOx3, moving all extremities, no gross focal deficit noted. Has started of dyskinesia movement Medical - PN: Obj Da - Labs CBC & Chem 7: 12/03/18 03:50 12/03/18 03:55 Labs: Abnormal Lab Results 12/03/18 12/03/18 12/03/18 03:55 03:50 03:50 WBC RDW 15.0 H Gran % 94.8 H Lymph % (Auto) 3.7 L [place] % (Auto) Gran # Lymph # (Auto) 0.3 L PT 22.2 H INR 2.0 H D-Dimer Sodium Carbon Dioxide 33 H BUN 30 H Glucose 140 H Magnesium GGT 83 H AST ALT 49 H Lactate Dehydrogenase 275 H Total Creatine Kinase CK-MB (CK-2) Urine Occult Blood 12/02/18 12/02/18 12/02/18 04:00 04:00 04:00 WBC 12.4 H RDW 15.1 H Gran % 95.9 H Lymph % (Auto) 2.0 L [place] % (Auto) Gran # 11.9 H Lymph # (Auto) 0.3 L PT 20.4 H INR 1.8 H D-Dimer Sodium Carbon Dioxide BUN 33 H Glucose 140 H Magnesium 2.7 H GGT 113 H AST 58 H ALT 74 H Lactate Dehydrogenase 464 H Total Creatine Kinase CK-MB (CK-2) Urine Occult Blood 12/01/18 12/01/18 12/01/18 03:50 03:50 03:50 WBC RDW 14.9 H Gran % 96.1 H Lymph % (Auto) 3.1 L [place] % (Auto) 0.8 L Gran # Lymph # (Auto) 0.2 L PT 18.0 H INR 1.5 H D-Dimer Sodium 146 H Carbon Dioxide BUN 30 H Glucose 137 H Magnesium 2.7 H GGT AST 38 H ALT 60 H Lactate Dehydrogenase 343 H Total Creatine Kinase CK-MB (CK-2) Urine Occult Blood 11/30/18 11/30/18 11/30/18 15:36 15:35 15:15 WBC 12.1 H RDW 15.0 H Gran % 96.5 H Lymph % (Auto) 1.9 L [place] % (Auto) Gran # 11.7 H Lymph # (Auto) 0.2 L PT 19.7 H INR 1.7 H D-Dimer 0.44 H Sodium Carbon Dioxide BUN Glucose Magnesium GGT AST ALT Lactate Dehydrogenase Total Creatine Kinase CK-MB (CK-2) Urine Occult Blood Trace A 11/30/18 14:50 WBC RDW Gran % Lymph % (Auto) [place] % (Auto) Gran # Lymph # (Auto) PT INR D-Dimer Sodium Carbon Dioxide BUN Glucose Magnesium GGT AST ALT Lactate Dehydrogenase Total Creatine Kinase 211 H CK-MB (CK-2) 11.5 H Urine Occult Blood Meds: Medications Acetaminophen (Tylenol) 650 mg PO Q4-6HP PRN PRN Reason: PAIN/FEVER > 101 Albuterol Sulfate (Ventolin) 2.5 mg NEB Q2HP PRN PRN Reason: Shortness Of Breath Albuterol/Ipratropium (Duoneb) 3 ml NEB Q4HRT COUNT INCLUDES [facility] Last Admin: 12/03/18 07:02 Dose: 3 ml Documented by: Amantadine HCl (Amantadine) 100 mg PO DAILY COUNT [facility]CLUDES [facility] Last Admin: 12/03/18 09:39 Dose: 100 mg Documented by: Artificial Tears (Refresh Celluvisc) 1 each OU Q4 [facility] Last Admin: 12/03/18 08:24 Dose: 1 each Documented by: Artificial Tears (Refresh Celluvisc) 1 each OU HS COUNT [facility]CLUDES [facility] Last Admin: 12/02/18 20:22 Dose: 1 each Documented by: Atorvastatin Calcium (Lipitor) 10 mg PO QDAY COUNT [facility]CLUD[facility] Last Admin: 12/03/18 09:39 Dose: 10 mg Documented by: Budesonide (Pulmicort) 0.5 mg NEB BID COUNT [facility]CLUD[facility] Last Admin: 12/03/18 07:02 Dose: 0.5 mg Documented by: Bupropion HCl (Wellbutrin) 75 mg PO QDAY [facility] Last Admin: 12/03/18 09:39 Dose: 75 mg Documented by: [facility] Last Admin: 12/03/18 08:22 Dose: 3.125 mg Documented by: Famotidine (Pepcid) 150 mg PO QHS [facility] Last Admin: 12/02/18 20:23 Dose: 150 mg Documented by: Furosemide (Lasix) 30 mg PO QDAY COUNT [facility]CLUD[facility] Last Admin: 12/03/18 09:39 Dose: 30 mg Documented by: Hydromorphone HCl (Dilaudid) 0.5 mg IV Q2HP PRN PRN Reason: PAIN LEVEL > 6 Last Admin: 12/01/18 20:26 Dose: 0.5 mg Documented by: Azithromycin 250 mg/ Dextrose 250 mls @ 250 mls/hr IV Q24H [facility]; Protocol Stop: 12/04/18 09:59 Last Admin: 12/03/18 09:40 Dose: 250 mls/hr Documented by: Lorazepam (Ativan) 1 mg IV Q2HP PRN PRN Reason: ANXIETY/SEDATION Last Admin: 12/03/18 01:25 Dose: 1 mg Documented by: Lorazepam (Ativan) 1 mg PO TIDP PRN PRN Reason: Anxiety Last Admin: 12/02/18 20:23 Dose: 1 mg Documented by: Methylprednisolone Sodium Succinate (Solu-Medrol) 62.5 mg IV Q8 [facility]CLUD[facility] Last Admin: 12/03/18 05:35 Dose: 62.5 mg Documented by: Misoprostol (Cytotec) 200 mcg PO [facility] Last Admin: 12/03/18 08:22 Dose: 200 mcg Documented by: Naloxone HCl (Narcan) 0.1 mg IV Q2MIN PRN PRN Reason: Opiate Reversal Pantoprazole Sodium (Protonix) 40 mg PO QAMAC COUNT [facility]CLUDES [facility] Last Admin: 12/03/18 08:23 Dose: 40 mg Documented by: Potassium Chloride (Kdur) 20 meq PO [facility] Last Admin: 12/03/18 08:22 Dose: 20 meq Documented by: Pramipexole Dihydrochloride (Mirapex) 0.125 mg PO [facility] Last Admin: 12/02/18 20:22 Dose: 0.125 mg Documented by: Prednisolone Acetate (Pred Forte Ophth Drops) 1 gtt OU QID COUNT [facility]CLUDES [facility] Last Admin: 12/03/18 09:40 Dose: 1 drop Documented by: Quetiapine Fumarate (Seroquel) 25 mg PO QHS COUNT [facility]CLUD[facility] Last Admin: 12/02/18 20:23 Dose: 25 mg Documented by: Sodium Chloride (Saline Flush) 10 ml IV Q8 COUNT [facility]CLUD[facility] Last Admin: 12/03/18 09:40 Dose: 10 ml Documented by: Sodium Chloride (Dunia-128) 1 gtt OU Q4 COUNT [facility]CLUDES [facility] Last Admin: 12/03/18 08:22 Dose: 1 drop Documented by: Warfarin Sodium (Coumadin Per Pharmacy) 1 order PO [facility] Medical - PN: A/P - Time Spent With Patient Total time spent is greater than 50% in coordination of care (as documented) at patient's floor/unit and/or counseling patient: - Narrative A/P Narrative: A/P Acute hypoxic/Hypercapenic resp failure Acute copd exacerbation acute on chr respiratory failure Atrial fibrillation chr anticoagulation HTN H/o CHF Restless leg syndrome Plan continue to monitor closely, continue on bipap, wean off as tolerated continue, duonebs and prn albuterol, IV steroids and zithromax for now ST for speech and diet consistency, speech therapy has placed patient n.p.o. we will reassess tomorrow okay to administer medication Resume home medications, Patient has noted that she is okay with intubation at least at this visit, if fails BiPAP will intubate. DVT patient on Coumadin with therapeutic INR, discontinue heparin limited code, ok to intubate, but no cpr ] Medical - PN: Qual - VTE Deep Vein Thrombosis/Pulmonary Embolism Present on Admission: No
[2018-12-03] MEDS: WARFARIN 5 MG TABLET PO SCH (13:25)
[2018-12-03] MEDS: HEPARIN 5,000 UNIT/ML VIAL SQ SCH (13:59)
[2018-12-03] MEDS: FAMOTIDINE 20 MG TABLET PO SCH (21:00)
[2018-12-03] MEDS: PRAMIPEXOLE 0.25 MG TABLET PO SCH (21:26)
[2018-12-03] MEDS: QUEtiapine 25 MG TABLET PO SCH (21:26)
[2018-12-03] MEDS: LORazepam 1 MG TABLET PO PRN (21:27)
[2018-12-03] MEDS ORDERED: FAMOTIDINE 20 MG TABLET PO ONE (22:07)
[2018-12-04] MEDS: CARBOXYMETHYLCELLULOSE SODIUM 1 EACH DROPER.GEL OU SCH ×7 (00:20→21:25)
[2018-12-04] MEDS: SODIUM CHLORIDE 5% OPTH DROPS BOTTLE 15ML OU SCH ×7 (00:22→20:23)
[2018-12-04] MEDS: IPRATROPIUM/ALBUTEROL 3 ML AMPUL.NEB NEB SCH ×6 (03:03→22:55)
[2018-12-04 05:21] LABS: Basophils # (Auto) 0 K/mcL (0.0-0.3); Basophils % (Auto) 0 % (0.0-2.0); Eosinophils # (Auto) 0 K/mcL (0.0-0.7); Eosinophils % (Auto) 0 % (0.0-7.0); Granulocytes % (Auto) 93.5 % (38.0-78.0); Lymphocytes # (Auto) 0.3 K/mcL (1.5-4.8); Lymphocytes % (Auto) 5.2 % (15.5-49.0); Mean Cell Volume 92.9 fL (80.0-100.0); Mean Corpuscular HGB Conc 32.6 g/dL (31.0-36.0); Monocytes # (Auto) 0.1 K/mcL (0.1-0.9); Monocytes % (Auto) 1.3 % (1.0-12.0); Platelet Count 151 K/mcL (140-440); RBC 4.31 M/mcL (4.00-5.20); Red Cell Distribution Width 14.7 % (11.5-14.5)
[2018-12-04 05:34] LABS: ALT/SGPT 41 U/l (0-40); Albumin 3.7 gm/dL (3.2-5.2); Albumin/Globulin Ratio 1.2 (1.0-2.3); Alkaline Phosphatase 73 U/L (39-117); Bilirubin,Direct < 0.2 mg/dL (0.0-0.3); Blood Urea Nitrogen 33 mg/dl (8-23); Gamma Glutamyl Transpeptidase 75 U/L (5-36)
[2018-12-04] MEDS: methylPREDNISolone SOD SUCC 125 MG/2 ML VIAL IV SCH ×3 (06:00→21:23)
[2018-12-04] MEDS: 0.9 % SODIUM CHLORIDE 10 ML SYRINGE IV SCH ×4 (06:24→21:24)
[2018-12-04] MEDS: prednisoLONE 1% OPHTH DROPS 1ML BOTTLE OU SCH ×5 (06:47→21:07)
[2018-12-04] MEDS: BUDESONIDE 0.5 MG/2 ML AMPUL.NEB NEB SCH ×2 (07:04→19:01)
[2018-12-04] MEDS: PANTOPRAZOLE 40 MG TABLET PO SCH (07:20)
[2018-12-04] MEDS: POTASSIUM CHLORIDE 10 MEQ TABLET PO SCH (08:50)
[2018-12-04] MEDS: buPROPion 75 MG TABLET PO SCH (08:51)
[2018-12-04] MEDS: CARVEDILOL 3.125 MG TABLET PO SCH (08:51)
[2018-12-04] MEDS: MISOPROSTOL 100 MCG TABLET PO SCH (08:52)
[2018-12-04] MEDS: FUROSEMIDE 20 MG TABLET PO SCH (09:52)
[2018-12-04] MEDS: AMANTADINE HCL 100 MG CAPSULE PO SCH (09:52)
[2018-12-04] MEDS: AZITHROMYCIN 250 MG in DEXTROSE 5% IN WATER 250 ML IV SCH (09:53)
[2018-12-04] MEDS: ATORVASTATIN 20 MG TABLET PO SCH (09:55)
--- NOTE | 2018-12-04 10:14 | Internal Med Progress Note ---
Medical - PN: Subj Patient information: Note initiated : 12/04/18 at 9:55 am Service Date, if different from initiated Date: [] Patient: Nirali Carbajal 78 y/o F admitted on 11/30/18 for SOB . Chief Complaint: [] Interval history: Ms. Carbajal is a 78 year old F with severe end-stage COPD presents to the hospital today for evaluation of shortness of breath. She was here in the emergency room yesterday and was also seen by PCP I believe yesterday. She was admitted to this hospital less than 2 weeks ago for COPD exacerbation. The patient was in the emergency room yesterday for shortness of breath and COPD exacerbation, it seems she was better and was also evaluated by PCP yesterday. The patient's story is a bit unclear as she was in BiPAP and significantly short of breath. It seems her shortness of breath got worse today and EMS was called. They needed to resort to initiation of BiPAP on her way, and multiple rounds of DuoNeb's. The patient was hypoxic saturating 89% at the time of presentation to the ED. Visibly short of breath and respiratory distress. Patient was afebrile, heart rate 92 respirations 30 blood pressure 172 x 31 and saturating 89% on BiPAP. X-ray chest shows negative for any acute infiltrate. ABG shows pH of 7.23, PCO2 61 PO2 752, 100% FiO2 on BiPAP setting over 08/19 The patient had mild leukocytosis hemoglobin 12.9, WBC 11.1, platelets 176 lactic acid 1.7 INR 1.7 d-dimer 0.44 CK-MB is 11.5 magnesium 2.0 sodium 145 potassium 3.9 chloride 101 bicarb 30 creatinine 0.9, the chemistries were done yesterday in the ER. UA is clear. Given the patient's severe respiratory distress and exacerbation patient is being admitted to the hospital for further management to the ICU status. 12/01 Patient seen and examined, no acute overnight events, off BiPAP this morning doing much better, air entry is better. Labs stable. I reviewed with the daughter again that the patient likely has some kind of an exposure that she is living which is triggering her breathing issues. On further discussion it seems that the patient has exposure to high amounts of bleach that is irritating her respiratory passage. Regarding her recurrent bouts of COPD exacerbation. Viral respiratory panel was also positive for RSV B patient will benefit at this time from some rehab before she goes back to her place, daughter educated to look for precipating factors. 12/02 Patient seen and examined, on NC now, but still short of breath, feels a bit better than before, concerns for aspiration? Patient still wheezing. 12/03 Patient seen and examined, high risk for aspiration placed n.p.o. except meds. Patient still on BiPAP, wheezing but feels better. No new concerns 12/04 Patient seen examine,d no acute overnight issues, off bipap this AM , feels much better shortness of breath much improved able to swallow apple sauce quite well, will resume diet, pt feels very hungry and is not as distressed as yesterday. Pertinent ROS: Denies headache, dizziness Denies chest pain, palpitations improving shortness of breath Denies abdominal pain, nausea or vomiting. - Constitutional Vitals: Vital Signs Temp Pulse Resp BP Pulse Ox 98.1 F 80 20 119/92 98 12/04/18 07:01 12/04/18 07:16 12/04/18 07:16 12/04/18 07:01 12/04/18 07:01 Period Temp Pulse Resp BP Sys/Morales Pulse Ox Last 24 Hr 95.7 F-98.4 F 31-89 14-33 116-177/72-144 91-100 Intake and Output 12/03/18 12/04/18 12/04/18 21:59 05:59 13:59 Output Total 860 473 110 Balance -860 -473 -110 Weight 175 lb Intake & Output: Intake & Output 12/03/18 12/04/18 12/04/18 21:59 05:59 13:59 Output Total 860 473 110 Balance -860 -473 -110 Weight 175 lb Output: Urine Catheter Amount 860 473 110 Other: Urine Appearance Clear Clear Clear Hicks Clear Clear Urine Color Bright Yellow Bright Yellow Dark Yellow Hicks Bright Yellow Bright Yellow Exam: Constitutional; Afebrile, cooperative, alert, not in distress. Respiratory system: Air Entry equal on both sides, No c rackles, [place] wheezing much improved, air entry much improved. CVS- Rate rhythm regular, S1,S2 heard, no gallop, no rub. 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 Medical - PN: Obj Da - Labs CBC & Chem 7: 12/04/18 03:50 12/04/18 03:50 Labs: Abnormal Lab Results 12/04/18 12/04/18 12/04/18 03:50 03:50 03:50 WBC RDW 14.7 H Gran % 93.5 H Lymph % (Auto) 5.2 L Gran # Lymph # (Auto) 0.3 L PT 26.1 H INR 2.4 H Carbon Dioxide 31 H BUN 33 H Glucose 142 H Magnesium GGT 75 H AST ALT 41 H Lactate Dehydrogenase 288 H Triglycerides 177 H 12/03/18 12/03/18 12/03/18 03:55 03:50 03:50 WBC RDW 15.0 H Gran % 94.8 H Lymph % (Auto) 3.7 L Gran # Lymph # (Auto) 0.3 L PT 22.2 H INR 2.0 H Carbon Dioxide 33 H BUN 30 H Glucose 140 H Magnesium GGT 83 H AST ALT 49 H Lactate Dehydrogenase 275 H Triglycerides 12/02/18 12/02/18 12/02/18 04:00 04:00 04:00 WBC 12.4 H RDW 15.1 H Gran % 95.9 H Lymph % (Auto) 2.0 L Gran # 11.9 H Lymph # (Auto) 0.3 L PT 20.4 H INR 1.8 H Carbon Dioxide BUN 33 H Glucose 140 H Magnesium 2.7 H GGT 113 H AST 58 H ALT 74 H Lactate Dehydrogenase 464 H Triglycerides Meds: Medications Acetaminophen (Tylenol) 650 mg PO Q4-6HP PRN PRN Reason: PAIN/FEVER > 101 Albuterol Sulfate (Ventolin) 2.5 mg NEB Q2HP PRN PRN Reason: Shortness Of Breath Albuterol/Ipratropium (Duoneb) 3 ml NEB Q4HRT [facility] Last Admin: 12/04/18 07:04 Dose: 3 ml Documented by: Amantadine HCl (Amantadine) 100 mg PO DAILY [facility] Last Admin: 12/03/18 09:39 Dose: 100 mg Documented by: Artificial Tears (Refresh Celluvisc) 1 each OU Q4 [facility] Last Admin: 12/04/18 08:55 Dose: Not Given Documented by: Artificial Tears (Refresh Celluvisc) 1 each OU HS [facility] Last Admin: 12/03/18 21:33 Dose: Not Given Documented by: Atorvastatin Calcium (Lipitor) 10 mg PO QDAY [facility] Last Admin: 12/03/18 09:39 Dose: 10 mg Documented by: Budesonide (Pulmicort) 0.5 mg NEB BID [facility] Last Admin: 12/04/18 07:04 Dose: 0.5 mg Documented by: Bupropion HCl (Wellbutrin) 75 mg PO QDAY [facility] Last Admin: 12/04/18 08:51 Dose: 75 mg Documented by: Carvedilol (Coreg) 3.125 mg PO [facility] Last Admin: 12/04/18 08:51 Dose: 3.125 mg Documented by: Famotidine (Pepcid) 20 mg PO QHS [facility] Furosemide (Lasix) 30 mg PO QDAY [facility] Last Admin: 12/03/18 09:39 Dose: 30 mg Documented by: Hydromorphone HCl (Dilaudid) 0.5 mg IV Q2HP PRN PRN Reason: PAIN LEVEL > 6 Last Admin: 12/01/18 20:26 Dose: 0.5 mg Documented by: Azithromycin 250 mg/ Dextrose 250 mls @ 250 mls/hr IV Q24H [facility]; Protocol Stop: 12/04/18 09:59 Last Infusion: 12/03/18 11:00 Dose: Infused Documented by: Lorazepam (Ativan) 1 mg IV Q2HP PRN PRN Reason: ANXIETY/SEDATION Last Admin: 12/03/18 01:25 Dose: 1 mg Documented by: Lorazepam (Ativan) 1 mg PO TIDP PRN PRN Reason: Anxiety Last Admin: 12/03/18 21:27 Dose: 1 mg Documented by: Methylprednisolone Sodium Succinate (Solu-Medrol) 62.5 mg IV Q8 [facility] Last Admin: 12/04/18 06:00 Dose: 62.5 mg Documented by: Misoprostol (Cytotec) 200 mcg PO [facility] Last Admin: 12/04/18 08:52 Dose: 200 mcg Documented by: Naloxone HCl (Narcan) 0.1 mg IV Q2MIN PRN PRN Reason: Opiate Reversal Pantoprazole Sodium (Protonix) 40 mg PO [facility] Last Admin: 12/04/18 07:20 Dose: 40 mg Documented by: Potassium Chloride (Kdur) 20 meq PO QAMCC [facility] Last Admin: 12/04/18 08:50 Dose: 20 meq Documented by: Pramipexole Dihydrochloride (Mirapex) 0.125 mg PO HS [facility] Last Admin: 12/03/18 21:26 Dose: 0.125 mg Documented by: Prednisolone Acetate (Pred Forte Ophth Drops) 1 gtt OU QID [facility] Last Admin: 12/04/18 07:41 Dose: 1 drop Documented by: Quetiapine Fumarate (Seroquel) 25 mg PO QHS [facility] Last Admin: 12/03/18 21:26 Dose: 25 mg Documented by: Sodium Chloride (Saline Flush) 10 ml IV Q8 [facility] Last Admin: 12/04/18 06:31 Dose: 10 ml Documented by: Sodium Chloride (Dunia-128) 1 gtt OU Q4 [facility] Last Admin: 12/04/18 07:30 Dose: 1 drop Documented by: Warfarin Sodium (Coumadin Per Pharmacy) 1 order PO UD [facility] Warfarin Sodium (Coumadin) 5 mg PO DAILY@1400 [facility] Last Admin: 12/03/18 13:25 Dose: 5 mg Documented by: Medical - PN: A/P - Time Spent With Patient Total time spent is greater than 50% in coordination of care (as documented) at patient's floor/unit and/or counseling patient: - Narrative A/P Narrative: A/P Acute hypoxic/Hypercapenic resp failure Acute copd exacerbation acute on chr respiratory failure Atrial fibrillation chr anticoagulation HTN H/o CHF Restless leg syndrome Plan continue to monitor closely, continue on bipap, wean off as tolerated, clinically much improved now. continue, duonebs and prn albuterol, IV steroids and zithromax. ST for speech and diet consistency, speech therap ty assess today, nursing feels safe to resume diet, able to s wallow sause quite well, start with dysphagia 2 diet, pt is able to coordinate swallow well. Resume home medications, Patient has noted that she is okay with intubation at least at this visit, if fails BiPAP will intubate. DVT patient on Coumadin with therapeutic INR, limited code, ok to intubate, but no cpr Medical - PN: Qual - VTE Deep Vein Thrombosis/Pulmonary Embolism Present on Admission: No
[2018-12-04] MEDS: LORazepam 1 MG TABLET PO PRN ×2 (11:58→20:29)
[2018-12-04] MEDS: WARFARIN 5 MG TABLET PO SCH (13:43)
[2018-12-04] MEDS ORDERED: NALOXONE HCL 0.4 MG/ML VIAL IV PRN (14:38)
[2018-12-04] MEDS ORDERED: ACETAMINOPHEN 325 MG TABLET PO PRN (14:38)
[2018-12-04] MEDS ORDERED: HYDROmorphone 2 MG/ML VIAL IV PRN (14:38)
[2018-12-04] MEDS ORDERED: ALBUTEROL SULFATE 2.5 MG/3 ML NEBULIZER NEB PRN (14:38)
--- NOTE | 2018-12-04 16:49 | Internal Med Progress Note ---
Medical - PN: Subj Patient information: Note initiated : 12/04/18 at 4:40 pm Service Date, if different from initiated Date: [] Patient: Nirali Carbajal 78 y/o F admitted on 11/30/18 for SOB . Chief Complaint: [] Interval history: Ms. Carbajal is a 78 year old F with severe end-stage COPD presents to the hospital today for evaluation of shortness of breath. She was here in the emergency room yesterday and was also seen by PCP I believe yesterday. She was admitted to this hospital less than 2 weeks ago for COPD exacerbation. The patient was in the emergency room yesterday for shortness of breath and COPD exacerbation, it seems she was better and was also evaluated by PCP yesterday. The patient's story is a bit unclear as she was in BiPAP and significantly short of breath. It seems her shortness of breath got worse today and EMS was called. They needed to resort to initiation of BiPAP on her way, and multiple rounds of DuoNeb's. The patient was hypoxic saturating 89% at the time of presentation to the ED. Visibly short of breath and respiratory distress. Patient was afebrile, heart rate 92 respirations 30 blood pressure 172 x 31 and saturating 89% on BiPAP. X-ray chest shows negative for any acute infiltrate. ABG shows pH of 7.23, PCO2 61 PO2 752, 100% FiO2 on BiPAP setting over 08/19 The patient had mild leukocytosis hemoglobin 12.9, WBC 11.1, platelets 176 lactic acid 1.7 INR 1.7 d-dimer 0.44 CK-MB is 11.5 magnesium 2.0 sodium 145 potassium 3.9 chloride 101 bicarb 30 creatinine 0.9, the chemistries were done yesterday in the ER. UA is clear. Given the patient's severe respiratory distress and exacerbation patient is being admitted to the hospital for further management to the ICU status. 12/01 Patient seen and examined, no acute overnight events, off BiPAP this morning doing much better, air entry is better. Labs stable. I reviewed with the daughter again that the patient likely has some kind of an exposure that she is living which is triggering her breathing issues. On further discussion it seems that the patient has exposure to high amounts of bleach that is irritating her respiratory passage. Regarding her recurrent bouts of COPD exacerbation. Viral respiratory panel was also positive for RSV B patient will benefit at this time from some rehab before she goes back to her place, daughter educated to look for precipating factors. 12/02 Patient seen and examined, on NC now, but still short of breath, feels a bit better than before, concerns for aspiration? Patient still wheezing. 12/03 Patient seen and examined, high risk for aspiration placed n.p.o. except meds. Patient still on BiPAP, wheezing but feels better. No new concerns 12/04 Patient seen examine,d no acute overnight issues, off bipap this AM , feels much better shortness of breath much improved able to swallow apple sauce quite well, will resume diet, pt feels very hungry and is not as distressed as yesterday. 12/05 - Constitutional Vitals: Vital Signs Temp Pulse Resp BP Pulse Ox 98.0 F 94 H 26 H 107/82 96 12/04/18 12:13 12/04/18 15:46 12/04/18 15:46 12/04/18 12:13 12/04/18 15:36 Period Temp Pulse Resp BP Sys/Morales Pulse Ox Last 24 Hr 95.7 F-98.4 F 31-98 14-34 107-178/72-144 91-99 Intake and Output 12/04/18 12/04/18 12/04/18 05:59 13:59 21:59 Intake Total 590 120 Output Total 473 635 175 Balance -473 -45 -55 Intake & Output: Intake & Output 12/04/18 12/04/18 12/04/18 05:59 13:59 21:59 Intake Total 590 120 Output Total 473 635 175 Balance -473 -45 -55 Intake: IV 250 Oral 340 120 Output: Urine Catheter Amount 473 635 175 Other: Meal Breakfast Percent of Meal Consumed 75% Feeding Ability Assist with Tray Set Up Urine Appearance Clear Clear Clear Hicks Clear Clear Urine Color Bright Yellow Bright Yellow Bright Yellow Hicks Bright Yellow Dark Yellow Stool Size Large Stool Color Yellow Stool Consistency Loose # Bowel Movements 1 # of times incontinent of 1 Bowels Exam: General: Alert, Awake, No acute Distress Eyes/N/T: EOMI, Head/Neck: neck supple, CV: RRR, No murmurs, Pulm: Abd: soft, nontender, +BS x4 Ext: no clubbing/cyanosis/ Neuro: Alert, no focal deficits, moves all extremities, Skin: warm/dry Medical - PN: Obj Da - Labs CBC & Chem 7: 12/04/18 03:50 12/04/18 03:50 Labs: Abnormal Lab Results 12/04/18 12/04/18 12/04/18 03:50 03:50 03:50 WBC RDW 14.7 H Gran % 93.5 H Lymph % (Auto) 5.2 L Gran # Lymph # (Auto) 0.3 L PT 26.1 H INR 2.4 H Carbon Dioxide 31 H BUN 33 H Glucose 142 H Magnesium GGT 75 H AST ALT 41 H Lactate Dehydrogenase 288 H Triglycerides 177 H 12/03/18 12/03/18 12/03/18 03:55 03:50 03:50 WBC RDW 15.0 H Gran % 94.8 H Lymph % (Auto) 3.7 L Gran # Lymph # (Auto) 0.3 L PT 22.2 H INR 2.0 H Carbon Dioxide 33 H BUN 30 H Glucose 140 H Magnesium GGT 83 H AST ALT 49 H Lactate Dehydrogenase 275 H Triglycerides 12/02/18 12/02/18 12/02/18 04:00 04:00 04:00 WBC 12.4 H RDW 15.1 H Gran % 95.9 H Lymph % (Auto) 2.0 L Gran # 11.9 H Lymph # (Auto) 0.3 L PT 20.4 H INR 1.8 H Carbon Dioxide BUN 33 H Glucose 140 H Magnesium 2.7 H GGT 113 H AST 58 H ALT 74 H Lactate Dehydrogenase 464 H Triglycerides Meds: Medications Acetaminophen (Tylenol) 650 mg PO Q4-6HP PRN PRN Reason: PAIN/FEVER > 101 Albuterol Sulfate (Ventolin) 2.5 mg NEB Q2HP PRN PRN Reason: Shortness Of Breath Albuterol/Ipratropium (Duoneb) 3 ml NEB Q4HRT [facility] Last Admin: 12/04/18 15:14 Dose: 3 ml Documented by: Amantadine HCl (Amantadine) 100 mg PO DAILY [facility] Artificial Tears (Refresh Celluvisc) 1 each OU Q4 [facility] Last Admin: 12/04/18 16:26 Dose: 1 each Documented by: Artificial Tears (Refresh Celluvisc) 1 each OU HS [facility] Atorvastatin Calcium (Lipitor) 10 mg PO QDAY [facility] Budesonide (Pulmicort) 0.5 mg NEB BID [facility] Bupropion HCl (Wellbutrin) 75 mg PO QDAY [facility] Carvedilol (Coreg) 3.125 mg PO QAMCC [facility] Famotidine (Pepcid) 20 mg PO QHS [facility] Furosemide (Lasix) 30 mg PO QDAY [facility] Hydromorphone HCl (Dilaudid) 0.5 mg IV Q2HP PRN PRN Reason: PAIN LEVEL > 6 Lorazepam (Ativan) 1 mg IV Q2HP PRN PRN Reason: ANXIETY/SEDATION Lorazepam (Ativan) 1 mg PO TIDP PRN PRN Reason: Anxiety Methylprednisolone Sodium Succinate (Solu-Medrol) 62.5 mg IV Q8 [facility] Misoprostol (Cytotec) 200 mcg PO QAMCC [facility] Naloxone HCl (Narcan) 0.1 mg IV Q2MIN PRN PRN Reason: Opiate Reversal Pantoprazole Sodium (Protonix) 40 mg PO QAMAC [facility] Potassium Chloride (Kdur) 20 meq PO QAMCC [facility] Pramipexole Dihydrochloride (Mirapex) 0.125 mg PO HS [facility] Prednisolone Acetate (Pred Forte Ophth Drops) 1 gtt OU QID [facility] Last Admin: 12/04/18 16:30 Dose: Not Given Documented by: Quetiapine Fumarate (Seroquel) 25 mg PO QHS [facility] Sodium Chloride (Saline Flush) 10 ml IV Q8 [facility] Sodium Chloride (Dunia-128) 1 gtt OU Q4 [facility] Last Admin: 12/04/18 16:28 Dose: Not Given Documented by: Warfarin Sodium (Coumadin Per Pharmacy) 1 order PO UD [facility] Medical - PN: A/P - Time Spent With Patient Total time spent is greater than 50% in coordination of care (as documented) at patient's floor/unit and/or counseling patient: - Narrative A/P Narrative: A: *Acute on chronic hypoxic/hypercapnic respiratory failure: *AECOPD: Secondary to RSV *Atrial fibrillation: On chronic anticoagulation and beta-stefania *HTN: *h/o CHF: *RLS: *Dementia: *Anxiety: *GERD: P: -Continue close respiratory and cardiac monitoring -BiPAP, wean off as able -Duonebs, IV steroids (wean), IS, home inhalers -Empiric antibiotics -ST for speech and diet consistency, speech therap ty assess today, nursing feels safe to resume diet, able to s wallow sause quite well, start with dys phagia 2 diet, pt is able to coordinate swallow well. -Continue home Coreg/furosemide - - -PT/OT -ppx: Warfarin per pharmacy Limited code but okay to intubate if respiratory status decompensates, but no CPR Medical - PN: Qual - VTE Deep Vein Thrombosis/Pulmonary Embolism Present on Admission: No
[2018-12-04] MEDS: QUEtiapine 25 MG TABLET PO SCH (20:19)
[2018-12-04] MEDS: FAMOTIDINE 20 MG TABLET PO SCH (20:20)
[2018-12-04] MEDS: PRAMIPEXOLE 0.25 MG TABLET PO SCH (20:20)
[2018-12-04] MEDS ORDERED: FAMOTIDINE 20 MG TABLET PO SCH (21:00)
[2018-12-05] MEDS: CARBOXYMETHYLCELLULOSE SODIUM 1 EACH DROPER.GEL OU SCH ×7 (03:17→20:16)
[2018-12-05] MEDS: SODIUM CHLORIDE 5% OPTH DROPS BOTTLE 15ML OU SCH ×6 (03:17→20:15)
[2018-12-05] MEDS: IPRATROPIUM/ALBUTEROL 3 ML AMPUL.NEB NEB SCH ×6 (03:38→22:54)
[2018-12-05] MEDS: methylPREDNISolone SOD SUCC 125 MG/2 ML VIAL IV SCH (05:24)
[2018-12-05] MEDS: 0.9 % SODIUM CHLORIDE 10 ML SYRINGE IV SCH ×4 (05:25→20:15)
[2018-12-05 06:17] LABS: Basophils # (Auto) 0 K/mcL (0.0-0.3); Basophils % (Auto) 0 % (0.0-2.0); Eosinophils # (Auto) 0 K/mcL (0.0-0.7); Eosinophils % (Auto) 0 % (0.0-7.0); Granulocytes % (Auto) 94.4 % (38.0-78.0); Lymphocytes # (Auto) 0.3 K/mcL (1.5-4.8); Lymphocytes % (Auto) 4.3 % (15.5-49.0); Mean Cell Volume 92.4 fL (80.0-100.0); Mean Corpuscular HGB Conc 32.2 g/dL (31.0-36.0); Monocytes # (Auto) 0.1 K/mcL (0.1-0.9); Monocytes % (Auto) 1.3 % (1.0-12.0); Platelet Count 173 K/mcL (140-440); RBC 4.79 M/mcL (4.00-5.20); Red Cell Distribution Width 15.1 % (11.5-14.5)
[2018-12-05 06:22] LABS: ALT/SGPT 38 U/l (0-40); Albumin 3.8 gm/dL (3.2-5.2); Albumin/Globulin Ratio 1.2 (1.0-2.3); Alkaline Phosphatase 79 U/L (39-117); Bilirubin,Direct < 0.2 mg/dL (0.0-0.3); Blood Urea Nitrogen 32 mg/dl (8-23); Gamma Glutamyl Transpeptidase 72 U/L (5-36); Uric Acid 5.1 mg/dL (2.5-8.0)
[2018-12-05] MEDS: PANTOPRAZOLE 40 MG TABLET PO SCH (07:00)
--- NOTE | 2018-12-05 07:17 | Internal Med Progress Note ---
Medical - PN: Subj Patient information: Note initiated : 12/05/18 at 7:13 am Service Date, if different from initiated Date: [] Patient: Nirali Carbajal 78 y/o F admitted on 11/30/18 for SOB . Chief Complaint: [] Interval history: Ms. Carbajal is a 78 year old F with severe end-stage COPD presents to the hospital today for evaluation of shortness of breath. She was here in the emergency room yesterday and was also seen by PCP I believe yesterday. She was admitted to this hospital less than 2 weeks ago for COPD exacerbation. The patient was in the emergency room yesterday for shortness of breath and COPD exacerbation, it seems she was better and was also evaluated by PCP yesterday. The patient's story is a bit unclear as she was in BiPAP and significantly short of breath. It seems her shortness of breath got worse today and EMS was called. They needed to resort to initiation of BiPAP on her way, and multiple rounds of DuoNeb's. The patient was hypoxic saturating 89% at the time of presentation to the ED. Visibly short of breath and respiratory distress. Patient was afebrile, heart rate 92 respirations 30 blood pressure 172 x 31 and saturating 89% on BiPAP. X-ray chest shows negative for any acute infiltrate. ABG shows pH of 7.23, PCO2 61 PO2 752, 100% FiO2 on BiPAP setting over 08/19 The patient had mild leukocytosis hemoglobin 12.9, WBC 11.1, platelets 176 lactic acid 1.7 INR 1.7 d-dimer 0.44 CK-MB is 11.5 magnesium 2.0 sodium 145 potassium 3.9 chloride 101 bicarb 30 creatinine 0.9, the chemistries were done yesterday in the ER. UA is clear. Given the patient's severe respiratory distress and exacerbation patient is being admitted to the hospital for further management to the ICU status. 12/01 Patient seen and examined, no acute overnight events, off BiPAP this morning doing much better, air entry is better. Labs stable. I reviewed with the daughter again that the patient likely has some kind of an exposure that she is living which is triggering her breathing issues. On further discussion it seems that the patient has exposure to high amounts of bleach that is irritating her respiratory passage. Regarding her recurrent bouts of COPD exacerbation. Viral respiratory panel was also positive for RSV B patient will benefit at this time from some rehab before she goes back to her place, daughter educated to look for precipating factors. 12/02 Patient seen and examined, on NC now, but still short of breath, feels a bit better than before, concerns for aspiration? Patient still wheezing. 12/03 Patient seen and examined, high risk for aspiration placed n.p.o. except meds. Patient still on BiPAP, wheezing but feels better. No new concerns 12/04 Patient seen examine,d no acute overnight issues, off bipap this AM , feels much better shortness of breath much improved able to swallow apple sauce quite well, will resume diet, pt feels very hungry and is not as distressed as yesterday. 12/05 Poor sleep she states because of interruptions. Feels her shortness of breath is improved overall although still present and she has at baseline. Did not require BiPAP last night and oxygenating well on 1 L. Feels anxious this morning. Review of Systems: denies headache/fever/chills/nausea/vomiting/chest or abdominal pain/diarrhea. Otherwise see above. - Constitutional Vitals: Vital Signs Temp Pulse Resp BP Pulse Ox 97.9 F 78 18 158/97 94 12/05/18 04:00 12/05/18 03:40 12/05/18 03:40 12/05/18 03:40 12/05/18 03:40 Period Temp Pulse Resp BP Sys/Morales Pulse Ox Last 24 Hr 97.9 F-98.0 F 74-105 18-34 107-178/81-113 92-98 Intake and Output 12/04/18 12/05/18 12/05/18 21:59 05:59 13:59 Intake Total 600 670 Output Total 425 650 275 Balance 175 20 -275 Weight 77.791 kg Intake & Output: Intake & Output 12/04/18 12/05/18 12/05/18 21:59 05:59 13:59 Intake Total 600 670 Output Total 425 650 275 Balance 175 20 -275 Weight 77.791 kg Intake: Oral 600 670 Output: Urine Catheter Amount 175 Void Amount 250 650 275 Other: Meal Dinner Percent of Meal Consumed 100% Feeding Ability Independent Urine Appearance Clear Clear Urine Color Bright Yellow Bright Yellow Urine Odor Normal # Voids 1 Exam: General: Alert, Awake, appears anxious Eyes/N/T: EOMI, Head/Neck: neck supple, CV: RRR, No murmurs, Pulm: Mild rhonchi on the right, no wheezing Abd: soft, nontender, +BS x4 Ext: no clubbing/cyanosis/ Neuro: Alert, no focal deficits, moves all extremities, Skin: warm/dry Medical - PN: Obj Da - Labs CBC & Chem 7: 12/05/18 04:05 12/05/18 04:05 Labs: Abnormal Lab Results 12/05/18 12/05/18 12/05/18 04:05 04:05 04:05 RDW 15.1 H Gran % 94.4 H Lymph % (Auto) 4.3 L Lymph # (Auto) 0.3 L PT 30.8 H INR 3.0 H Carbon Dioxide 32 H BUN 32 H Glucose 167 H Magnesium GGT 72 H AST ALT Lactate Dehydrogenase 341 H Triglycerides 12/04/18 12/04/18 12/04/18 03:50 03:50 03:50 RDW 14.7 H Gran % 93.5 H Lymph % (Auto) 5.2 L Lymph # (Auto) 0.3 L PT 26.1 H INR 2.4 H Carbon Dioxide 31 H BUN 33 H Glucose 142 H Magnesium GGT 75 H AST ALT 41 H Lactate Dehydrogenase 288 H Triglycerides 177 H 12/03/18 12/03/18 12/03/18 03:55 03:50 03:50 RDW 15.0 H Gran % 94.8 H Lymph % (Auto) 3.7 L Lymph # (Auto) 0.3 L PT 22.2 H INR 2.0 H Carbon Dioxide 33 H BUN 30 H Glucose 140 H Magnesium GGT 83 H AST ALT 49 H Lactate Dehydrogenase 275 H Triglycerides 12/02/18 12/02/18 04:00 04:00 RDW Gran % Lymph % (Auto) Lymph # (Auto) PT 20.4 H INR 1.8 H Carbon Dioxide BUN 33 H Glucose 140 H Magnesium 2.7 H GGT 113 H AST 58 H ALT 74 H Lactate Dehydrogenase 464 H Triglycerides Meds: Medications Acetaminophen (Tylenol) 650 mg PO Q4-6HP PRN PRN Reason: PAIN/FEVER > 101 Albuterol Sulfate (Ventolin) 2.5 mg NEB Q2HP PRN PRN Reason: Shortness Of Breath Albuterol/Ipratropium (Duoneb) 3 ml NEB Q4HRT [facility] Last Admin: 12/05/18 03:38 Dose: 3 ml Documented by: Amantadine HCl (Amantadine) 100 mg PO DAILY [facility] Artificial Tears (Refresh Celluvisc) 1 each OU Q4 [facility] Last Admin: 12/05/18 03:38 Dose: 1 each Documented by: Artificial Tears (Refresh Celluvisc) 1 each OU HS [facility] Last Admin: 12/04/18 21:25 Dose: Not Given Documented by: Atorvastatin Calcium (Lipitor) 10 mg PO QDAY [facility] Budesonide (Pulmicort) 0.5 mg NEB BID [facility] Last Admin: 12/04/18 19:01 Dose: 0.5 mg Documented by: Bupropion HCl (Wellbutrin) 75 mg PO QDAY [facility]il[facility] ([facility]) [facility] Famotidine (Pepcid) 20 mg PO QHS [facility] Last Admin: 12/04/18 20:20 Dose: 20 mg Documented by: Furosemide (Lasix) 30 mg PO QDAY [facility] Hydromorphone HCl (Dilaudid) 0.5 mg IV Q2HP PRN PRN Reason: PAIN LEVEL > 6 Lorazepam (Ativan) 1 mg IV Q2HP PRN PRN Reason: ANXIETY/SEDATION Lorazepam (Ativan) 1 mg PO TIDP PRN PRN Reason: Anxiety Last Admin: 12/04/18 20:29 Dose: 1 mg Documented by: Methylprednisolone Sodium Succinate (Solu-Medrol) 62.5 mg IV Q8 [facility] Last Admin: 12/05/18 05:24 Dose: 62.5 mg Documented by: Misoprostol (Cytotec) [facility] Naloxone HCl (Narcan) 0.1 mg IV Q2MIN PRN PRN Reason: Opiate Reversal Pantoprazole Sodium (Protonix) 40 mg PO QAMAC [facility] Last Admin: 12/05/18 07:00 Dose: 40 mg Documented by: Potassium Chloride (Kdur) [facility]q [facility] Pramipexole Dihydrochloride (Mirapex) 0.125 mg PO HS [facility] Last Admin: 12/04/18 20:20 Dose: 0.125 mg Documented by: Prednisolone Acetate (Pred Forte Ophth Drops) 1 gtt OU QID [facility] Last Admin: 12/04/18 21:07 Dose: Not Given Documented by: Quetiapine Fumarate (Seroquel) 25 mg PO QHS [facility] Last Admin: 12/04/18 20:19 Dose: 25 mg Documented by: Sodium Chloride (Saline Flush) 10 ml IV Q8 [facility] Last Admin: 12/05/18 05:25 Dose: 10 ml Documented by: Sodium Chloride (Dunia-128) 1 gtt OU Q4 [facility] Last Admin: 12/05/18 03:38 Dose: 1 drop Documented by: Warfarin Sodium (Coumadin Per Pharmacy) 1 order PO UD [facility] Medical - PN: A/P - Time Spent With Patient Total time spent is greater than 50% in coordination of care (as documented) at patient's floor/unit and/or counseling patient: - Narrative A/P Narrative: A: *Acute on chronic hypoxic/hypercapnic respiratory failure: -Now on 1 L nasal cannula, no BiPAP needed overnight *AECOPD (2L@home): Secondary to RSV *Atrial fibrillation: On chronic anticoagulation and beta-stefania *HTN: *h/o CHF: *RLS: *Dementia: *Anxiety: *GERD: *Oropharyngeal dysphagia, moderate: P: -Continue close respiratory and cardiac monitoring -BiPAP, wean off as able to home o2 regimen -Duonebs, IV steroids (wean), IS, home inhalers -Empiric antibiotics -ST for speech and diet consistency, speech therap ty assess today, nursing f eels safe to resume diet, able to s wallow sause quite well, start with dysphagia 2 diet, pt is able to coordinate swallow well. -Continue home Coreg/furosemide - -PT/OT -ppx: Warfarin per pharmacy Limited code but okay to intubate if respiratory status decompensates, but no CPR Medical - PN: Qual - VTE Deep Vein Thrombosis/Pulmonary Embolism Present on Admission: No
[2018-12-05] MEDS: BUDESONIDE 0.5 MG/2 ML AMPUL.NEB NEB SCH ×2 (07:25→18:48)
[2018-12-05] MEDS: CARVEDILOL 3.125 MG TABLET PO SCH (08:12)
[2018-12-05] MEDS: POTASSIUM CHLORIDE 10 MEQ TABLET PO SCH (08:13)
[2018-12-05] MEDS: MISOPROSTOL 100 MCG TABLET PO SCH (08:13)
[2018-12-05] MEDS: ATORVASTATIN 20 MG TABLET PO SCH (09:40)
[2018-12-05] MEDS: buPROPion 75 MG TABLET PO SCH (09:40)
[2018-12-05] MEDS: FUROSEMIDE 20 MG TABLET PO SCH (09:41)
[2018-12-05] MEDS: prednisoLONE 1% OPHTH DROPS 1ML BOTTLE OU SCH ×4 (09:42→20:15)
[2018-12-05] MEDS: AMANTADINE HCL 100 MG CAPSULE PO SCH (09:42)
[2018-12-05] MEDS: LORazepam 2 MG/ML VIAL IV PRN (10:03)
[2018-12-05] MEDS ORDERED: WARFARIN 5 MG TABLET PO SCH (14:00)
[2018-12-05] MEDS: LORazepam 1 MG TABLET PO PRN ×2 (14:40→20:14)
[2018-12-05] MEDS: FAMOTIDINE 20 MG TABLET PO SCH (20:14)
[2018-12-05] MEDS: PRAMIPEXOLE 0.25 MG TABLET PO SCH (20:14)
[2018-12-05] MEDS: QUEtiapine 25 MG TABLET PO SCH (20:14)
[2018-12-05] MEDS: methylPREDNISolone SOD SUCC 40 MG/ML VIAL IV SCH (20:15)
[2018-12-05] MEDS ORDERED: LOPERAMIDE 2 MG CAPSULE PO PRN (21:41)
[2018-12-06] MEDS: BUDESONIDE 0.5 MG/2 ML AMPUL.NEB NEB SCH ×2 (00:06→08:15)
[2018-12-06] MEDS: SODIUM CHLORIDE 5% OPTH DROPS BOTTLE 15ML OU SCH ×4 (00:14→11:58)
[2018-12-06] MEDS: CARBOXYMETHYLCELLULOSE SODIUM 1 EACH DROPER.GEL OU SCH ×4 (00:15→12:02)
[2018-12-06] MEDS: LORazepam 2 MG/ML VIAL IV PRN (00:37)
[2018-12-06] MEDS: IPRATROPIUM/ALBUTEROL 3 ML AMPUL.NEB NEB SCH ×3 (03:28→11:18)
[2018-12-06] MEDS: 0.9 % SODIUM CHLORIDE 10 ML SYRINGE IV SCH ×2 (05:51→09:15)
[2018-12-06 06:27] LABS: ALT/SGPT 31 U/l (0-40); Albumin 3.7 gm/dL (3.2-5.2); Albumin/Globulin Ratio 1.3 (1.0-2.3); Alkaline Phosphatase 69 U/L (39-117); Bilirubin,Direct < 0.2 mg/dL (0.0-0.3); Blood Urea Nitrogen 37 mg/dl (8-23); Gamma Glutamyl Transpeptidase 63 U/L (5-36); Uric Acid 5.5 mg/dL (2.5-8.0)
[2018-12-06] MEDS: PANTOPRAZOLE 40 MG TABLET PO SCH (07:19)
--- NOTE | 2018-12-06 07:50 | Internal Med Progress Note ---
Medical - PN: Subj Patient information: Note initiated : 12/06/18 at 7:47 am Service Date, if different from initiated Date: [] Patient: Nirali Carbajal 78 y/o F admitted on 11/30/18 for SOB . Chief Complaint: [] Interval history: Ms. Carbajal is a 78 year old F with severe end-stage COPD presents to the hospital today for evaluation of shortness of breath. She was here in the emergency room yesterday and was also seen by PCP I believe yesterday. She was admitted to this hospital less than 2 weeks ago for COPD exacerbation. The patient was in the emergency room yesterday for shortness of breath and COPD exacerbation, it seems she was better and was also evaluated by PCP yesterday. The patient's story is a bit unclear as she was in BiPAP and significantly short of breath. It seems her shortness of breath got worse today and EMS was called. They needed to resort to initiation of BiPAP on her way, and multiple rounds of DuoNeb's. The patient was hypoxic saturating 89% at the time of presentation to the ED. Visibly short of breath and respiratory distress. Patient was afebrile, heart rate 92 respirations 30 blood pressure 172 x 31 and saturating 89% on BiPAP. X-ray chest shows negative for any acute infiltrate. ABG shows pH of 7.23, PCO2 61 PO2 752, 100% FiO2 on BiPAP setting over 08/19 The patient had mild leukocytosis hemoglobin 12.9, WBC 11.1, platelets 176 lactic acid 1.7 INR 1.7 d-dimer 0.44 CK-MB is 11.5 magnesium 2.0 sodium 145 potassium 3.9 chloride 101 bicarb 30 creatinine 0.9, the chemistries were done yesterday in the ER. UA is clear. Given the patient's severe respiratory distress and exacerbation patient is being admitted to the hospital for further management to the ICU status. 12/01 Patient seen and examined, no acute overnight events, off BiPAP this morning doing much better, air entry is better. Labs stable. I reviewed with the daughter again that the patient likely has some kind of an exposure that she is living which is triggering her breathing issues. On further discussion it seems that the patient has exposure to high amounts of bleach that is irritating her respiratory passage. Regarding her recurrent bouts of COPD exacerbation. Viral respiratory panel was also positive for RSV B patient will benefit at this time from some rehab before she goes back to her place, daughter educated to look for precipating factors. 12/02 Patient seen and examined, on NC now, but still short of breath, feels a bit better than before, concerns for aspiration? Patient still wheezing. 12/03 Patient seen and examined, high risk for aspiration placed n.p.o. except meds. Patient still on BiPAP, wheezing but feels better. No new concerns 12/04 Patient seen examine,d no acute overnight issues, off bipap this AM , feels much better shortness of breath much improved able to swallow apple sauce quite well, will resume diet, pt feels very hungry and is not as distressed as yesterday. 12/05 Poor sleep she states because of interruptions. Feels her shortness of breath is improved overall although still present and she has at baseline. Did not require BiPAP last night and oxygenating well on 1 L. Feels anxious this morning. Review of Systems: denies headache/fever/chills/nausea/vomiting/chest or abdominal pain/diarrhea. Otherwise see above. - Constitutional Vitals: Vital Signs Temp Pulse Resp BP Pulse Ox 97.7 F 91 H 28 H 110/89 92 12/06/18 07:27 12/06/18 04:12 12/06/18 07:27 12/06/18 07:27 12/06/18 07:27 Period Temp Pulse Resp BP Sys/Morales Pulse Ox Last 24 Hr 97.0 F-98.9 F 91-112 18-31 108-170/84-101 92-96 Intake and Output 12/05/18 12/06/18 12/06/18 21:59 05:59 13:59 Intake Total 240 Output Total 0 325 300 Balance 240 -325 -300 Weight 78.245 kg Intake & Output: Intake & Output 12/05/18 12/06/18 12/06/18 21:59 05:59 13:59 Intake Total 240 Output Total 0 325 300 Balance 240 -325 -300 Weight 78.245 kg Intake: Oral 240 Output: Void Amount 0 325 300 Other: Meal Dinner Nourishment/Supplement Percent of Meal Consumed 100% 100% Feeding Ability Assist with Tray Set Up Assist with Tray Set Up Urine Appearance Clear Clear Clear Urine Color Pale Bright Yellow Dark Yellow Urine Odor Normal Normal Normal Stool Size Moderate Small Stool Color Shailesh Colored Shailesh Colored Stool Consistency Loose Loose # Voids 1 1 # Bowel Movements 1 1 # of times incontinent of 1 Bowels Exam: General: Alert, Awake, appears anxious Eyes/N/T: EOMI, Head/Neck: neck supple, CV: RRR, No murmurs, Pulm: Mild rhonchi on the right, no wheezing Abd: soft, nontender, +BS x4 Ext: no clubbing/cyanosis/ Neuro: Alert, no focal deficits, moves all extremities, Skin: warm/dry Medical - PN: Obj Da - Labs CBC & Chem 7: 12/05/18 04:05 12/06/18 03:47 Labs: Abnormal Lab Results 12/06/18 12/06/18 12/05/18 03:48 03:47 04:05 RDW Gran % Lymph % (Auto) Lymph # (Auto) PT 31.0 H INR 3.0 H Carbon Dioxide 32 H BUN 37 H 32 H Glucose 126 H 167 H GGT 63 H 72 H ALT Lactate Dehydrogenase 314 H 341 H Triglycerides 12/05/18 12/05/18 12/04/18 04:05 04:05 03:50 RDW 15.1 H Gran % 94.4 H Lymph % (Auto) 4.3 L Lymph # (Auto) 0.3 L PT 30.8 H INR 3.0 H Carbon Dioxide 31 H BUN 33 H Glucose 142 H GGT 75 H ALT 41 H Lactate Dehydrogenase 288 H Triglycerides 177 H 12/04/18 12/04/18 03:50 03:50 RDW 14.7 H Gran % 93.5 H Lymph % (Auto) 5.2 L Lymph # (Auto) 0.3 L PT 26.1 H INR 2.4 H Carbon Dioxide BUN Glucose GGT ALT Lactate Dehydrogenase Triglycerides Meds: Medications Acetaminophen (Tylenol) 650 mg PO Q4-6HP PRN PRN Reason: PAIN/FEVER > 101 Last Admin: 12/06/18 07:19 Dose: 650 mg Documented by: Albuterol Sulfate (Ventolin) 2.5 mg NEB Q2HP PRN PRN Reason: Shortness Of Breath Albuterol/Ipratropium (Duoneb) 3 ml NEB Q4HRT KHALIF Last Admin: 12/06/18 03:28 Dose: 3 ml Documented by: Amantadine HCl (Amantadine) 100 mg PO DAILY [facility] Last Admin: 12/05/18 09:42 Dose: 100 mg Documented by: Artificial Tears (Refresh Celluvisc) 1 each OU Q4 [facility] Last Admin: 12/06/18 03:28 Dose: 1 each Documented by: Artificial Tears (Refresh Celluvisc) 1 each OU HS [facility] Last Admin: 12/05/18 20:16 Dose: Not Given Documented by: Atorvastatin Calcium (Lipitor) 10 mg PO QDAY [facility] Last Admin: 12/05/18 09:40 Dose: 10 mg Documented by: Budesonide (Pulmicort) 0.5 mg NEB BID [facility] Last Admin: 12/06/18 00:06 Dose: Not Given Documented by: Bupropion HCl (Wellbutrin) 75 mg PO QDAY [facility] Last Admin: 12/05/18 09:40 Dose: 75 mg Documented by: Carvedilol (Coreg) 3.125 mg PO [facility] Last Admin: 12/05/18 08:12 Dose: 3.125 mg Documented by: Famotidine (Pepcid) 20 mg PO QHS [facility] Last Admin: 12/05/18 20:14 Dose: 20 mg Documented by: Furosemide (Lasix) 30 mg PO QDAY [facility] Last Admin: 12/05/18 09:41 Dose: 30 mg Documented by: Hydromorphone HCl (Dilaudid) 0.5 mg IV Q2HP PRN PRN Reason: PAIN LEVEL > 6 Loperamide HCl (Imodium) 2 mg PO PRN PRN PRN Reason: Diarrhea Last Admin: 12/06/18 00:37 Dose: 2 mg Documented by: Lorazepam (Ativan) 1 mg IV Q2HP PRN PRN Reason: ANXIETY/SEDATION Last Admin: 12/06/18 00:37 Dose: 1 mg Documented by: Lorazepam (Ativan) 1 mg PO TIDP PRN PRN Reason: Anxiety Last Admin: 12/05/18 20:14 Dose: 1 mg Documented by: Methylprednisolone Sodium Succinate (Solu-Medrol) 40 mg IV Q12 [facility] Last Admin: 12/05/18 20:15 Dose: 40 mg Documented by: [facility] ([facility]otec) [facility] Last Admin: 12/05/18 08:13 Dose: 200 mcg Documented by: Naloxone HCl (Narcan) 0.1 mg IV Q2MIN PRN PRN Reason: Opiate Reversal Pantoprazole Sodium (Protonix) 40 mg PO QAMAC [facility] Last Admin: 12/06/18 07:19 Dose: 40 mg Documented by: Potassium Chloride (Kdur) 20 meq PO QAMCC [facility] Last Admin: 12/05/18 08:13 Dose: 20 meq Documented by: Pramipexole Dihydrochloride (Mirapex) 0.125 mg PO [facility] Last Admin: 12/05/18 20:14 Dose: 0.125 mg Documented by: Prednisolone Acetate (Pred Forte Ophth Drops) 1 gtt OU QID [facility] Last Admin: 12/05/18 20:15 Dose: 1 drop Documented by: Quetiapine Fumarate (Seroquel) 25 mg PO QHS [facility] Last Admin: 12/05/18 20:14 Dose: 25 mg Documented by: Sodium Chloride (Saline Flush) 10 ml IV Q8 [facility] Last Admin: 12/06/18 05:51 Dose: 10 ml Documented by: Sodium Chloride (Dunia-128) 1 gtt OU Q4 [facility] Last Admin: 12/06/18 03:28 Dose: 1 drop Documented by: Warfarin Sodium (Coumadin Per Pharmacy) 1 order PO UD [facility] Medical - PN: A/P - Time Spent With Patient Total time spent is greater than 50% in coordination of care (as documented) at patient's floor/unit and/or counseling patient: - Narrative A/P Narrative: A: *Acute on chronic hypoxic/hypercapnic respiratory failure: -Now on 1 L nasal cannula, no BiPAP needed overnight *AECOPD (2L@home): Secondary to RSV *Atrial fibrillation: On chronic anticoagulation and beta-stefania *HTN: *h/o CHF: *RLS: *Dementia: *Anxiety: *GERD: *Oropharyngeal dysphagia, moderate: P: -Continue close respiratory and cardiac monitoring -Duonebs, IV steroids (wean), IS, home inhalers -Empiric antibiotics -ST for speech and diet consistency, start with dysphagia 2 diet -Continue home Coreg/furosemide - -PT/OT -ppx: Warfarin per pharmacy Limited code but okay to intubate if respiratory status decompensates, but no CPR Medical - PN: Qual - VTE Deep Vein Thrombosis/Pulmonary Embolism Present on Admission: No
[2018-12-06] MEDS: POTASSIUM CHLORIDE 10 MEQ TABLET PO SCH (08:26)
[2018-12-06] MEDS: CARVEDILOL 3.125 MG TABLET PO SCH (08:26)
[2018-12-06] MEDS: MISOPROSTOL 100 MCG TABLET PO SCH (08:26)
[2018-12-06] MEDS: FUROSEMIDE 20 MG TABLET PO SCH (09:13)
[2018-12-06] MEDS: AMANTADINE HCL 100 MG CAPSULE PO SCH (09:13)
[2018-12-06] MEDS: ATORVASTATIN 20 MG TABLET PO SCH (09:14)
[2018-12-06] MEDS: prednisoLONE 1% OPHTH DROPS 1ML BOTTLE OU SCH ×2 (09:14→12:37)
[2018-12-06] MEDS: buPROPion 75 MG TABLET PO SCH (09:15)
[2018-12-06] MEDS: methylPREDNISolone SOD SUCC 40 MG/ML VIAL IV SCH (09:15)
--- NOTE | 2018-12-06 10:34 | Discharge Summary ---
Medical - DS: Prov Patient information: Note initiated : 12/06/18 at 10:31 am Service Date, if different from initiated Date: [] Patient: Nirali Carbajal 78 y/o F admitted on 11/30/18 for SOB . Chief Complaint: [] Date of admission: 11/30/18 20:46 Discharge date: 12/06/18 Primary care physician: Shane Quiles MD Consults: 11/30/18 16:54 Consult to Physician [CONS] Stat Comment: Consulting Provider: Mojgan Garcia Reason For Exam: Physician to Consult Medical - DS: Meds - Discharge Medications Prescriptions: LORazepam [Ativan] 1 mg PO TID #20 tab predniSONE [Prednisone] 40 mg PO DAILY #1 tab Active and Home Medications: Home Medications albuterol sulfate HFA 90 mcg/actuation aerosol inhaler 2 puff INHALATION Q6HP PRN g 08/16/17 [History Confirmed 11/30/18 Last Taken 11/30/18] atorvastatin 10 mg tablet 10 mg PO QDAY #30 tab 09/20/18 [Rx Confirmed 11/30/18 Last Taken 11/30/18] carvedilol 3.125 mg tablet 3.125 mg PO QDAY #30 tab 09/20/18 [Rx Confirmed 11/30/18 Last Taken 11/30/18] misoprostol 200 mcg tablet 200 mcg PO QDAY #90 tab 10/07/18 [Rx Confirmed 11/30/18 Last Taken 11/30/18] quetiapine 25 mg tablet 25 mg PO QHS tab 10/18/18 [History Confirmed 11/30/18 Last Taken 11/29/18] furosemide 20 mg tablet 30 mg PO QDAY #45 tab 11/01/18 [Rx Confirmed 11/30/18 Last Taken 11/30/18] potassium chloride ER 20 mEq tablet,extended release 20 meq PO QDAY #60 tab 11/01/18 [Rx Confirmed 11/30/18 Last Taken 11/30/18] ipratropium-albuterol 0.5 mg-3 mg(2.5 mg base)/3 mL nebulization soln 2 ml INHALATION QID PRN #360 ml 11/11/18 [Rx Confirmed 11/30/18 Last Taken Unknown] Prednisolone Acetate/Pf [Prednisolone Acet 1% Eye Drop] 5 ml OP QID 11/18/18 [History Confirmed 11/30/18 Last Taken 11/30/18] Warfarin [Coumadin] 5 mg PO MOTUWETHFRSA@1400 11/18/18 [History Confirmed 11/30/18 Last Taken 11/29/18] Wheelchair 1 each MC CONT 11/18/18 [History Confirmed 12/01/18 Last Taken Unknown] budesonide 0.5 mg/2 mL suspension for nebulization 0.5 mg INHALATION BID #120 ml 11/29/18 [Rx Confirmed 11/30/18 Last Taken Unknown] Carboxymethylcellulos/Glycerin [Refresh Optive Eye Drops] 1 drp OU Q4 11/30/18 [History Confirmed 11/30/18 Last Taken 11/30/18] Carboxymethylcellulos/Glycerin [Refresh Optive Gel Eye Drops] 1 drp OU HS 11/30/18 [History Confirmed 11/30/18 Last Taken 11/29/18] LORazepam [Ativan] 1 mg PO TID 11/30/18 [History Confirmed 11/30/18 Last Taken 11/30/18] Pramipexole [Mirapex] 0.125 mg PO HS 11/30/18 [History Confirmed 11/30/18 Last Taken 11/29/18] Sodium Chloride 5% Opth Drops [Dunia-128] 1 gtt OU Q4 11/30/18 [History Confirmed 11/30/18 Last Taken 11/30/18] amantadine HCl 100 mg capsule 100 mg PO DAILY 11/30/18 [History Confirmed 11/30/18 Last Taken 11/30/18] bupropion HCl 75 mg tablet 75 mg PO QDAY #30 tab 12/05/18 [Rx Last Taken Unknown] ranitidine 150 mg capsule 150 mg PO QHS #90 cap 12/05/18 [Rx Last Taken Unknown] Medical - DS: Hosp Hospital course: Mr. Carbajal is a 78 year old F Ms. Carbajal is a 78 year old F with severe end-stage COPD presents to the hospital today for evaluation of shortness of breath. She was here in the emergency room yesterday and was also seen by PCP I believe yesterday. She was admitted to this hospital less than 2 weeks ago for COPD exacerbation. The patient was in the emergency room yesterday for shortness of breath and COPD exacerbation, it seems she was better and was also evaluated by PCP yesterday. The patient's story is a bit unclear as she was in BiPAP and significantly short of breath. It seems her shortness of breath got worse today and EMS was called. They needed to resort to initiation of BiPAP on her way, and multiple rounds of DuoNeb's. The patient was hypoxic saturating 89% at the time of presentation to the ED. Visibly short of breath and respiratory distress. Patient was afebrile, heart rate 92 respirations 30 blood pressure 172 x 31 and saturating 89% on BiPAP. X-ray chest shows negative for any acute infiltrate. ABG shows pH of 7.23, PCO2 61 PO2 752, 100% FiO2 on BiPAP setting over 08/19 The patient had mild leukocytosis hemoglobin 12.9, WBC 11.1, platelets 176 lactic acid 1.7 INR 1.7 d-dimer 0.44 CK-MB is 11.5 magnesium 2.0 sodium 145 potassium 3.9 chloride 101 bicarb 30 creatinine 0.9, the chemistries were done yesterday in the ER. UA is clear. Given the patient's severe respiratory distress and exacerbation patient is being admitted to the hospital for further management to the ICU status. 12/01 Patient seen and examined, no acute overnight events, off BiPAP this morning doing much better, air entry is better. Labs stable. I reviewed with the daughter again that the patient likely has some kind of an exposure that she is living which is triggering her breathing issues. On further discussion it seems that the patient has exposure to high amounts of bleach that is irritating her respiratory passage. Regarding her recurrent bouts of COPD exacerbation. Viral respiratory panel was also positive for RSV B patient will benefit at this time from some rehab before she goes back to her place, daughter educated to look for precipating factors. 12/02 Patient seen and examined, on NC now, but still short of breath, feels a bit better than before, concerns for aspiration? Patient still wheezing. 12/03 Patient seen and examined, high risk for aspiration placed n.p.o. except meds. Patient still on BiPAP, wheezing but feels better. No new concerns 12/04 Patient seen examine,d no acute overnight issues, off bipap this AM , feels much better shortness of breath much improved able to swallow apple sauce quite well, will resume diet, pt feels very hungry and is not as distressed as yesterday. 12/05 Poor sleep she states because of interruptions. Feels her shortness of breath is improved overall although still present and she has at baseline. Did not require BiPAP last night and oxygenating well on 1 L. Feels anxious this morning. 12/06 Feeling much better. On room air now. There is back to baseline. Stable for discharge to longterm facility Discharge diagnosis: Acute on chronic hypoxic hypercapnic respiratory failure COPD Secondary discharge diagnosis: RSV infection H fibrillation hypertension history of CHF dementia anxiety GERD oral pharyngeal dysphasia moderate - Time Spent with Patient Total time spent providing and/or coordinating discharge services: Greater than 30 minutes Medical - DS: Exam - Constitutional Vitals: Vital Signs Temp Pulse Resp BP Pulse Ox 12/06/18 08:15 98 H 20 96 12/06/18 07:27 97.7 F 28 H 110/89 92 12/06/18 07:15 92 12/06/18 04:12 97.0 F 91 H 23 H 108/84 94 12/06/18 00:26 98.2 F 99 H 23 H 152/87 96 12/05/18 23:03 96 H 24 H 12/05/18 20:38 97.3 F 108 H 29 H 140/93 92 12/05/18 20:00 94 12/05/18 19:09 92 12/05/18 19:08 112 H 18 12/05/18 18:01 97.5 F 31 H 158/101 96 12/05/18 15:31 103 H 23 H 12/05/18 12:44 23 H 12/05/18 12:27 98.9 F 25 H 170/91 92 12/05/18 11:29 95 H 23 H Intake and Output 12/05/18 12/06/18 12/06/18 21:59 05:59 13:59 Intake Total 240 360 Output Total 0 325 300 Balance 240 -325 60 Intake: Oral 240 360 Output: Void Amount 0 325 300 Other: Meal Dinner Nourishment/Supplement Breakfast Percent of Meal Consumed 100% 100% 100% Feeding Ability Assist with Tray Set Up Assist with Tray Set Up Urine Appearance Clear Clear Clear Urine Color Pale Bright Yellow Dark Yellow Urine Odor Normal Normal Normal Stool Size Moderate Small Stool Color Shailesh Colored Shailesh Colored Stool Consistency Loose Loose # Voids 1 1 # Bowel Movements 1 1 # of times incontinent of 1 Bowels Weight 78.245 kg Medical - DS: Data Labs on day of discharge: Labs from last 24 hours 12/06/18 12/06/18 03:48 03:47 PT 31.0 H INR 3.0 H Sodium 144 Potassium 4.4 Chloride 102 Carbon Dioxide 28 Anion Gap 14.0 BUN 37 H Creatinine 0.9 GFR Calculation 60 Glucose 126 H Uric Acid 5.5 Calcium 8.6 Phosphorus 3.3 Magnesium 2.3 Total Bilirubin 0.4 Direct Bilirubin < 0.2 GGT 63 H AST 14 ALT 31 Alkaline Phosphatase 69 Lactate Dehydrogenase 314 H Total Protein 6.6 Albumin 3.7 Globulin 2.9 Albumin/Globulin Ratio 1.3 Triglycerides 81 Medical - DS: A/P - Patient/Caregiver Discharge Instructions Activity: as per physical therapy Diet: Dysphagia Mech Alter - Follow up Plan Follow up with: Shane Quiles MD [Primary Care Provider] - Disposition: [facility] Prognosis: Fair Rehab Potential: Fair I certify that the patient requires SNF services: Yes Overall status at discharge: patient is back to baseline Medical - DS: Qual - VTE Deep Vein Thrombosis/Pulmonary Embolism Present on Admission: No
[2018-12-06] MEDS: LORazepam 1 MG TABLET PO PRN (12:46)
== END 2018-12-06 13:56 | DRG 190 ==
LOC: ED 13:29 → ICU 20:46
PROVIDERS: ADMIT Internal Medicine; ATTEND Internal Medicine